=== PATIENT | female | born 1970 | race Caucasian/White ===

== ENCOUNTER 2016-11-13 10:39 | Inpatient (IN) | payer MEDICAID ==
[2016-11-13] MEDS ORDERED: Sodium Chloride 0.9% 1,000 ML IV ONE (11:12)
--- NOTE | 2016-11-13 11:20 | ED Physician Chart ---
Chief Complaint/HPI - Patient Information Date Seen:: 11/13/16 Time Seen:: 11:15 Chief Complaint:: dizzy History of Present Illness:: pt here for ARMENDARIZ and dizziness x week. was seen at clinic earlier and told her hgb is 8. she has had past blood transfusions due to her thalasemia. she also has a hx of brain ca x 3 yrs. pt is seen by neurologist q 6 mo and has been advised not to get brain sx as it would leave her bedridden for rest of life. pt cant give me details as to what type of brain ca it is or what is prognosis. she has had some decreased sensation to l side of body x months. pt speaks vietnamese and armenian. her armenian is relatively good but she has trouble w some words. Allergies:: Allergies Allergy/AdvReac Type Severity Reaction Status Date / Time No Known Allergies Allergy Verified 10/19/15 10:54 Vitals:: Vital Signs - 8 hr 11/13/16 10:50 Temp 96.8 F HR 91 RR 16 BP 154/86 O2 Sat % 97 Historian:: Patient Review of Systems - Review of Systems General/Constitutional: No fever, No chills, No weight loss, No weakness, No diaphoresis, No edema, No loss of appetite Skin: No skin lesions, No rash, No bruising Head: Headache, Light headed Eyes: No loss of vision, No pain, No diplopia ENT: No earache, No nasal drainage, No sore throat, No tinnitus Neck: No neck pain, No swelling, No thyromegaly, No stiffness, No mass noted Cardio Vascular: No chest pain, No palpitations, No PND, No orthopnea, No edema Pulmonary: No SOB, No cough, No sputum, No wheezing GI: No nausea, No vomiting, No diarrhea, No pain, No melena, No hematochezia, No constipation, No hematemesis G/U: No dysuria, No frequency, No hematuria Musculoskeletal: No bone or joint pain, No back pain, No muscle pain Endocrine: No polyuria, No polydipsia Psychiatric: No prior psych history, No depression, No anxiety, No suicidal ideation Hematopoietic: No bruising, No lymphadenopathy Allergic/Immuno: No urticaria, No angioedema Neurological: No syncope, No focal symptoms, No weakness, Paresthesia (numbness left side body x months), No paresthesia, No headache, No seizure, Dizziness, No confusion, No vertigo Past Medical History - Past Medical History Past Medical History: Other (anemia/thalasemia, brain ca x 3 yrs) Social History: Other (has family but they are at school/work//here alone) Medication: Reviewed Family Medical History - Family Member Mother History Unknown: Yes Physical Exam - Physical Examination General/Constitutional: Awake, Well-developed, well-nourished, Alert, No distress, GCS 15, Non-toxic appearing, Ambulatory Head: Atraumatic Eyes: Lids, conjuctiva normal, PERRL, EOMI Skin: Nl inspection, No rash, No skin lesions, No ecchymosis, Well hydrated, No lymphadenopathy ENMT: External ears, nose nl, Nasal exam nl, Lips, teeth, gums nl Neck: Nontender, Full ROM w/o pain, No JVD, No nuchal rigidity, No bruit, No mass, No stridor Respiratory: Nl effort/Exclusion, Clear to Auscultation, No Wheeze/Rhonchi/Rales Cardio Vascular: RRR, No murmur, gallop, rubs, NL S1 S2 GI: No tenderness/rebounding/guarding, No organomegaly, No hernia, Normal BS's, Nondistended, No mass/bruits, No McBurney tenderness : No CVA tenderness Extremities: No tenderness or effusion, Full ROM, normal strength in all extremities, No edema, Normal digits & nails Neuro/Psych: Alert/oriented, DTR's symmetric, Normal motor strength, Judgement/ insight normal, Mood normal, Normal gait, No focal deficits Other Neuro/Psych comments:: decreased sensation to l face/hand/arm/leg as compared to rt. no dec strength. Misc: normal gait, Normal back, No paraspinal tenderness Labs/Radiology/EKG Results - Lab Results Results: Laboratory Tests 11/13/16 11/13/16 11/13/16 11:08 11:08 11:22 WBC 7.8 RBC 3.41 L Hgb 8.3 L Hct 25.4 L D MCV 74.4 L MCH 24.3 L MCHC Differential 32.6 RDW 14.9 Plt Count 430 H MPV 8.3 Neutrophils % 58.6 Lymphocytes % 32.7 Monocytes % 6.5 Eosinophils % 1.5 Basophils % 0.7 PT INR PTT (Actin FS) Urine Source CLEAN C Urine Color RED Urine Clarity CLOUDY H Urine pH 7.0 Ur Specific [place] 1.025 Urine Protein >300 H Urine Glucose (UA) NEGATIVE Urine Ketones NEGATIVE Urine Blood LARGE H Urine Nitrate NEGATIVE Urine Bilirubin NEGATIVE Urine Ictotest NEGATIVE Urine Urobilinogen 1.0 Ur Leukocyte Esterase NEGATIVE Urine RBC >100 H Urine WBC 0-2 Ur Epithelial Cells RARE Urine Bacteria 2+ H Urine Test NEGATIVE 11/13/16 11:22 WBC RBC Hgb Hct MCV MCH MCHC Differential RDW Plt Count MPV Neutrophils % Lymphocytes % Monocytes % Eosinophils % Basophils % PT 9.5 INR 0.91 PTT (Actin FS) 22.5 L Urine Source Urine Color Urine Clarity Urine pH Ur Specific Ernest Urine Protein Urine Glucose (UA) Urine Ketones Urine Blood Urine Nitrate Urine Bilirubin Urine Ictotest Urine Urobilinogen Ur Leukocyte Esterase Urine RBC Urine WBC Ur Epithelial Cells Urine Bacteria Urine Test - Radiology Results Results: ct head - ill defined heterogenous density //mass lesion along left BG and l frontal lobe measures 2.5x2cm (known brain ca hx) no mass effect, no bleed. no midline shift. - EKG Interpretations EKG Time:: 11:25 Rate & Rhythm: nsr 75 Jacob: 29 Intervals: mild st elev w upscooping ..likely benign repol ED Septic Shock - . Is Septic Shock (SBP<90, OR Lactate>4 mmol\L) present?: No - <6hrs of presentation: Vital Signs: Vital Signs - 8 hr 11/13/16 10:50 Temp 96.8 F HR 91 RR 16 BP 154/86 O2 Sat % 97 Reassessment (Disposition) - Reassessment Reassessment:: case dw dr reynolds at 2;30pm...is giving admit order and consult to neurology + hematology. Reassessment Condition:: Unchanged - Diagnosis Diagnosis:: 1 anemia (known thalasemia hx) 2 brain mass 3 headache - Patient Disposition Admitted to:: Med/Surg Condition at Disposition:: Unchanged
[2016-11-13 11:48] LABS: HEMOGLOBIN 8.3 gm/dL (11.7-15.5); RED BLOOD COUNT 3.41 Mil/cmm (3.80-5.10); WHITE BLOOD COUNT 7.8 Th/cmm (4.8-10.8)
[2016-11-13 11:49] LABS: % BASOPHILS 0.7 % (0.0-2.0); % EOSINOPHILS 1.5 % (0.0-5.0); % LYMPHOCYTES 32.7 % (20.0-50.0); % MONOCYTES 6.5 % (2.0-10.0); % NEUTROPHILS 58.6 % (40.0-80.0); HEMATOCRIT 25.4 % (35.0-45.0); MEAN CELL VOLUME 74.4 fl (81-100); MEAN CORPUSCULAR HEMOGLOBIN 24.3 pg (27.0-31.0); MEAN CORPUSCULAR HGB CONC 32.6 pg (28.0-36.0); MEAN PLATELET VOLUME 8.3 fl; PLATELET COUNT 430 Th/cmm (150-400); RED CELL DISTRIBUTION WIDTH 14.9 % (11.5-20.0)
[2016-11-13 11:50] LABS: NEUTROPHILE ABSOLUTE 4.5 Th/cmm (1.8-8.0)
[2016-11-13 12:06] LABS: URINE COLOR RED
[2016-11-13 12:07] LABS: URINE BILIRUBIN NEGATIVE (NEGATIVE); URINE BLOOD LARGE (NEGATIVE); URINE GLUCOSE (UA) NEGATIVE (NEGATIVE); URINE KETONE NEGATIVE (NEGATIVE); URINE PROTEIN >300 mg/dL (NEGATIVE)
[2016-11-13 12:09] LABS: URINE BACTERIA 2+ /hpf (NONE SEEN); URINE EPITHELIAL CELLS RARE /lpf (FEW); URINE RBC >100 /hpf (0-5); URINE WBC 0-2 /hpf (0-5)
[2016-11-13 12:21] LABS: INR 0.91 (0.5-1.4); PROTHROMBIN TIME (TEST) 9.5 SECONDS (9.5-11.5)
--- NOTE | 2016-11-13 12:37 | Diagnostic Imaging Report ---
Head CT without intravenous contrast Indication: Headache, provided history of brain cancer Comparison: None Technique: Axial images were obtained from the vertex to the skull base without IV contrast. Coronal reconstructions were made. Total DLP: 601, CTDI31 FINDINGS: Images of the brain obtained without contrast demonstrate ill defined heterogeneous density and probable mass lesion along the left basal ganglia extending to left frontal lobe and left insular region measuring 2.5 x 2 cm. No significant mass effect. No midline shift. No evidence of an acute hemorrhage. The ventricles and basal cisterns are patent. No evidence of a skull fracture or focal soft tissue swelling. The visualized paranasal sinuses demonstrate mild mucosal thickening. IMPRESSION: Ill defined heterogeneous area/likely mass lesion along the left basal ganglia extending to the left insular region and left frontal lobe. Please correlate patient's clinical history and history of brain cancer. Recommend short-term follow-up with MRI brain without IV contrast No significant mass effect or midline shift No evidence of an acute intracranial hemorrhage.
[2016-11-13 12:46] LABS: ALB/GLOB RATIO 1.2 (1.0-1.8); ALKALINE PHOSPHATASE 87 U/L (34-104); ANION GAP 10.9 (7.0-16.0); BILIRUBIN,TOTAL 0.2 mg/dL (0.3-1.0); BUN - UREA NITROGEN 12 mg/dL (7-25); CALCIUM SERUM 8.8 mg/dL (8.6-10.3); CARBON DIOXIDE 23.4 mEq/L (21.0-31.0); CHLORIDE 106 mEq/L (98-107); CREATININE - SERUM 0.5 mg/dL (0.6-1.2); GLUCOSE 136 mg/dL (70-105); POTASSIUM SERUM 3.3 mEq/L (3.5-5.1); SGOT 15 U/L (13-39); SGPT/ALT 12 U/L (7-52); SODIUM SERUM 137 mEq/L (136-145)
[2016-11-13] MEDS ORDERED: Potassium Chloride 20 mEq ER Tab PO ONE (15:54)
[2016-11-13] MEDS ORDERED: Hydrocodone/APAP 5mg/325mg Tab PO SCH (17:45)
[2016-11-13 18:29] VITALS: BP 157/80
[2016-11-13] MEDS: Hydrocodone/APAP 5mg/325mg Tab PO PRN (18:40)
[2016-11-13] MEDS: cefTRIAXone 1 GM in Sodium Chloride 0.9% 50 ML IV SCH (18:51)
--- NOTE | 2016-11-13 20:39 | Consultation ---
DATE OF CONSULTATION: 11/13/2016 HISTORY OF PRESENT ILLNESS: This is a 46-year-old. The patient came in because of headache and dizziness. She gives a history of brain tumor. PAST MEDICAL HISTORY: Otherwise has history of possible anemia. The patient has thalassemia. Seen by Hematology. SOCIAL HISTORY: Does not smoke or drink. REVIEW OF SYSTEMS: The patient on direct questioning had headache pressure like, throbbing. No visual loss. Some nausea. No vomiting. The patient has no chest pain and no shortness of breath. No cough, sputum, or hemoptysis. No abdominal pain. No constipation or diarrhea. MEDICATIONS: [place]. PHYSICAL EXAMINATION: VITAL SIGNS: Temperature 97.8, blood pressure 160/80, and pulse is around about 76. NECK: Supple. No bruits. HEART: S1, S2. LUNGS: Clear. NEUROLOGIC: The patient is awake. She answers questions. The patient's family is by the bedside. She speaks mainly [place]. Pupils react to light. No facial weakness. MOTOR: She will lift both arms up. INVESTIGATIONS: CT scan shows a mass left basal ganglia, left frontal. IMPRESSION: 1. Brain tumor. 2. Headache. 3. Anemia. PLAN: MRI of brain without and with contrast. Further workup depending on that. I will recommend transfer of the patient to a Neurosurgical Facility. JOB# [id number]
[2016-11-14 07:05] LABS: RED CELL DISTRIBUTION WIDTH 14.9 % (11.5-20.0)
[2016-11-14 07:21] LABS: ANION GAP 8.9 (7.0-16.0); BUN - UREA NITROGEN 6 mg/dL (7-25); CALCIUM SERUM 8.1 mg/dL (8.6-10.3); CARBON DIOXIDE 22.6 mEq/L (21.0-31.0); CHLORIDE 108 mEq/L (98-107); CREATININE - SERUM 0.4 mg/dL (0.6-1.2); GLUCOSE 127 mg/dL (70-105); POTASSIUM SERUM 3.5 mEq/L (3.5-5.1); SODIUM SERUM 136 mEq/L (136-145)
[2016-11-14 07:32] LABS: HEMATOCRIT 24.4 % (35.0-45.0); MEAN CELL VOLUME 74.4 fl (81-100); MEAN CORPUSCULAR HEMOGLOBIN 24.1 pg (27.0-31.0); MEAN CORPUSCULAR HGB CONC 32.4 pg (28.0-36.0); MEAN PLATELET VOLUME 8.4 fl; PLATELET COUNT 399 Th/cmm (150-400); RED BLOOD COUNT 3.27 Mil/cmm (3.80-5.10); WHITE BLOOD COUNT 7.2 Th/cmm (4.8-10.8)
[2016-11-14 08:25] LABS: HEMOGLOBIN 7.9 gm/dL (11.7-15.5)
[2016-11-14 08:30] LABS: EOSINOPHIL 2 % (0-5); MICROCYTOSIS 1+; NEUTROPHILS 58 % (40-80); TOTAL CELLS COUNTED 100
--- NOTE | 2016-11-14 08:34 | History and Physical ---
History of Present Illness - HPI Chief Complaint: dizziness HPI: 46 year old female who presents to [facility] for ARMENDARIZ and dizziness x 1 week. Was informed that her hgb is 8. She has had a previous blood transfusion d/t thalassemia. She also has a history of bran CA x 3 years. Patient has a neurologist q6 months and was advised not to get brain sugery as it would leave her bedridden. patient has decreased sensation to left side of the body. Vital Signs: Last Vital Signs Temp 97.8 F 11/14/16 04:00 Pulse 79 11/14/16 04:00 Resp 18 11/14/16 08:00 BP 132/86 11/14/16 04:00 Pulse Ox 98 11/14/16 04:00 Past Medical History Cardiovascular: Report: No Pertinent Hx Pulmonary: Report: No Pertinent Hx EDUCATIONAL TECHNOLOGY SPECIALIST: Report: Other (brain CA x 3 years) GI: Report: No Pertinent Hx Psych: Report: No Pertinent Hx Musculoskeletal: Report: No Pertinent Hx Rheumatologic: Report: No pertinent Hx Infectious Disease: Report: No Pertinent Hx Renal/: Report: No Pertinent Hx Endocrine: Report: No Pertinent Hx Dermatology: Report: No Pertinent Hx Family Medical History - Family Member Mother History Unknown: Yes Social History Smoke: No Alcohol: None Drugs: None Lives: Alone - Medications Home Medications: Home Medication Medication Instructions Recorded Type Hydrocodone/Acetaminophen [[place] 1 tab PO BID 11/13/16 History 325 mg-5 mg*] - Allergies Allergies/Adverse Reactions: Allergies Allergy/AdvReac Type Severity Reaction Status Date / Time No Known Allergies Allergy Verified 10/19/15 10:54 Review of Systems - Review of Systems Constitutional: Report: No Significant Eyes: Report: No Significant ENT: Report: No Significant Respiratory: Report: No Significant Cardiovascular: Report: No Significant Gastrointestinal: Report: No Significant Genitourinary: Report: No Significant Musculoskeletal: Report: No Significant Skin: Report: No Significant Neurological: Report: No Significant Physical Exam - Physical Exam HEENT: Report: Ears Nose Throat within normal limits, Pharnyx within normal limits Neck: Report: Within normal limits, Thyromegaly Cardiovascular Systems: Report: +s1/s2 noted, Regular, Rate and Rhythm Respiratory: Report: Breath Sounds are within normal limits, Clear to Auscultation of lung rivera Abdomen: Report: Non-tender to palpation - Lab Results All Lab Results last 24 hours: Laboratory Last Values WBC 7.2 Th/cmm (4.8-10.8) 11/14/16 06:20 RBC 3.27 Mil/cmm (3.80-5.10) L 11/14/16 06:20 Hgb 7.9 gm/dL (11.7-15.5) L* 11/14/16 06:20 Hct 24.4 % (35.0-45.0) L 11/14/16 06:20 MCV 74.4 fl (81-100) L 11/14/16 06:20 MCH 24.1 pg (27.0-31.0) L 11/14/16 06:20 MCHC Differential 32.4 pg (28.0-36.0) 11/14/16 06:20 RDW 14.9 % (11.5-20.0) 11/14/16 06:20 Plt Count 399 Th/cmm (150-400) 11/14/16 06:20 MPV 8.4 fl 11/14/16 06:20 Neutrophils % 47.9 % (40.0-80.0) 11/14/16 06:20 Lymphocytes % 40.3 % (20.0-50.0) 11/14/16 06:20 Monocytes % 9.8 % (2.0-10.0) 11/14/16 06:20 Eosinophils % 1.7 % (0.0-5.0) 11/14/16 06:20 Basophils % 0.3 % (0.0-2.0) 11/14/16 06:20 PT 9.5 SECONDS (9.5-11.5) 11/13/16 11:22 INR 0.91 (0.5-1.4) 11/13/16 11:22 PTT (Actin FS) 22.5 SECONDS (26.0-38.0) L 11/13/16 11:22 Sodium 136 mEq/L (136-145) 11/14/16 06:20 Potassium 3.5 mEq/L (3.5-5.1) 11/14/16 06:20 Chloride 108 mEq/L (98-107) H 11/14/16 06:20 Carbon Dioxide 22.6 mEq/L (21.0-31.0) 11/14/16 06:20 Anion Gap 8.9 (7.0-16.0) 11/14/16 06:20 BUN 6 mg/dL (7-25) L 11/14/16 06:20 Creatinine 0.4 mg/dL (0.6-1.2) L 11/14/16 06:20 Est GFR ( Amer) > 60.0 ml/min (>90) 11/14/16 06:20 Est GFR (Non-Af Amer) > 60.0 ml/min 11/14/16 06:20 BUN/Creatinine Ratio 15.0 11/14/16 06:20 Glucose 127 mg/dL (70-105) H 11/14/16 06:20 Calcium 8.1 mg/dL (8.6-10.3) L 11/14/16 06:20 Total Bilirubin 0.2 mg/dL (0.3-1.0) L 11/13/16 11:22 AST 15 U/L (13-39) 11/13/16 11:22 ALT 12 U/L (7-52) 11/13/16 11:22 Alkaline Phosphatase 87 U/L (34-104) 11/13/16 11:22 Troponin I 0.02 ng/mL (0.01-0.05) 11/13/16 11:22 Total Protein 6.9 gm/dL (6.0-8.3) 11/13/16 11:22 Albumin 3.8 gm/dL (3.7-5.3) 11/13/16 11:22 Globulin 3.1 gm/dL 11/13/16 11:22 Albumin/Globulin Ratio 1.2 (1.0-1.8) 11/13/16 11:22 Urine Source CLEAN C 11/13/16 11:08 Urine Color RED 11/13/16 11:08 Urine Clarity CLOUDY (CLEAR) H 11/13/16 11:08 Urine pH 7.0 (4.6 - 8.0) 11/13/16 11:08 Ur Specific [place] 1.025 (1.005-1.030) 11/13/16 11:08 Urine Protein >300 mg/dL (NEGATIVE) H 11/13/16 11:08 Urine Glucose (UA) NEGATIVE mg/dL (NEGATIVE) 11/13/16 11:08 Urine Ketones NEGATIVE mg/dL (NEGATIVE) 11/13/16 11:08 Urine Blood LARGE (NEGATIVE) H 11/13/16 11:08 Urine Nitrate NEGATIVE (NEGATIVE) 11/13/16 11:08 Urine Bilirubin NEGATIVE (NEGATIVE) 11/13/16 11:08 Urine Ictotest NEGATIVE (NEGATIVE) 11/13/16 11:08 Urine Urobilinogen 1.0 E.U./dL (0.2 - 1.0) 11/13/16 11:08 Ur Leukocyte Esterase NEGATIVE (NEGATIVE) 11/13/16 11:08 Urine RBC >100 /hpf (0-5) H 11/13/16 11:08 Urine WBC 0-2 /hpf (0-5) 11/13/16 11:08 Ur Epithelial Cells RARE /lpf (FEW) 11/13/16 11:08 Urine Bacteria 2+ /hpf (NONE SEEN) H 11/13/16 11:08 Urine Test NEGATIVE 11/13/16 11:08 Blood Type O POSITIVE 11/13/16 11:22 Antibody Screen NEGATIVE 11/13/16 11:22 Laboratory Results - last 24 hr 11/14/16 11/14/16 06:20 06:20 WBC 7.2 RBC 3.27 L Hgb 7.9 L* Hct 24.4 L MCV 74.4 L MCH 24.1 L MCHC Differential 32.4 RDW 14.9 Plt Count 399 MPV 8.4 Neutrophils % 47.9 Lymphocytes % 40.3 Monocytes % 9.8 Eosinophils % 1.7 Basophils % 0.3 Sodium 136 Potassium 3.5 Chloride 108 H Carbon Dioxide 22.6 Anion Gap 8.9 BUN 6 L Creatinine 0.4 L Est GFR ( Amer) > 60.0 Est GFR (Non-Af Amer) > 60.0 BUN/Creatinine Ratio 15.0 Glucose 127 H Calcium 8.1 L - Assessment Assessment: dizziness h/o thalessemia anemia Hg 8-7.9 ... repeat CBC. Hematology consult brain CA noted on CT head ... for MRI head today. Neuro consult UTI ... will order Rocephin 1gm IV hypokalemia ... improved. - Plan Plan: dizziness h/o thalessemia anemia Hg 8-7.9 ... repeat CBC. Hematology consult brain CA noted on CT head ... for MRI head today. Neuro consult UTI ... will order Rocephin 1gm IV hypokalemia ... improved.
--- NOTE | 2016-11-14 12:20 | Diagnostic Imaging Report ---
MRI Brain without and with intravenous Contrast Indication: Mass Comparison: Head CT on 11/13/2016 Technique: Multiplanar T1, T2, FLAIR, GRE and diffusion weighted images of the brain were obtained without intravenous contrast.. IV contrast was administered and multiplanar T1-weighted images were obtained. Findings: There is no evidence of an acute infarction. There is diffuse hemosiderin deposition seen along the left basal ganglia region extending the left frontal lobe. There is heterogeneous lobulated mass with cystic components seen in this region measuring 2.0 x 1.9 cm. Following contrast administration minimal enhancement is seen in this region. There is probable development of the abnormality of the left frontal lobe. No other mass lesions identified. The vascular flow was are preserved. The bilateral cerebellopontine angles are patent. IMPRESSION: 2.0 x 1.9 cm heterogeneous lesion with cystic components and areas of mild enhancement seen along the left basal ganglia region extending left frontal lobe. Surrounding hemosiderin deposition is seen likely due to old hemorrhage. Differential diagnosis includes a primary brain tumor such as a gangliocytoma, ganglioglioma. Other less likely differentials include metastatic disease. Clinical correlation and correlation with old exams is recommended. Follow-up is also recommended. No evidence of significant mass effect. No midline shift. Possible very small developmental venous abnormality of the left frontal lobe.
--- NOTE | 2016-11-14 12:33 | Consultation ---
DATE OF CONSULTATION: 11/14/2016 REFERRING PHYSICIAN: Dr. Brizuela. REASON FOR CONSULTATION: Brain tumor. HISTORY OF PRESENT ILLNESS: The patient is a 46-year-old female who presented to the hospital with headache. She had CT scan of the abdomen, which showed tumor. She was evaluated by the neurologist and MRI of the brain was ordered and the patient is getting MRI at [facility]. PAST MEDICAL HISTORY: History of brain tumor 3 years ago, the details of treatment are not clear. SOCIAL HISTORY: No smoking or drinking. PHYSICAL EXAMINATION: Not done since the patient is not in the hospital this time and from the records, the patient does not have neuro deficits. CT scan of the head report was seen. It reported ill-defined heterogenous mass in the left basal ganglia area extending to the left insular region and left frontal lobe. LABORATORY DATA: White count 7.2, hemoglobin 7.9, platelets 399, creatinine 0.4. Liver functions normal. ASSESSMENT AND PLAN: History of brain tumor 3 years ago. The pathology is not available. The patient is undergoing MRI to better delineate the pathology in the brain. The patient will be better served by referring her to the primary facility where she did her previous workup, pathology and interventions to continue management in the presence of a neurosurgeon. Thank you Dr. Brizuela, for the opportunity to participate in the care of this interesting case with you. JOB# [id number]
--- NOTE | 2016-11-14 13:34 | Diagnostic Imaging Report ---
Ultrasound abdomen HISTORY: Abdominal pain COMPARISON: CT abdomen and pelvis on 09/11/2015 Technique: Sonography of the abdomen was performed in multiple planes. FINDINGS: The liver demonstrates normal echogenicity with no evidence of focal lesions. The liver measures 17.4 cm. No evidence of gallstones or gallbladder wall thickening. The common bile duct measures 2 mm. Evaluation of the pancreas is limited due to bowel gas. The right kidney measures 11.1 x 5.2 cm. No evidence of focal lesions or hydronephrosis. The left kidney measures 11.7 x 6.1 cm. No evidence of focal lesions or hydronephrosis. The spleen measures 9.4 cm. IMPRESSION: Borderline prominent liver No evidence of gallstones No evidence of hydronephrosis.
[2016-11-14] MEDS: Hydrocodone/APAP 5mg/325mg Tab PO PRN (16:56)
[2016-11-14] MEDS: cefTRIAXone 1 GM in Sodium Chloride 0.9% 50 ML IV SCH (17:34)
[2016-11-15] MEDS: Hydrocodone/APAP 5mg/325mg Tab PO PRN (04:32)
[2016-11-15 07:21] LABS: HEMATOCRIT 24.8 % (35.0-45.0); MEAN CELL VOLUME 74.4 fl (81-100); MEAN CORPUSCULAR HGB CONC 32.2 pg (28.0-36.0); MEAN PLATELET VOLUME 8.3 fl; PLATELET COUNT 444 Th/cmm (150-400); RED BLOOD COUNT 3.34 Mil/cmm (3.80-5.10); RED CELL DISTRIBUTION WIDTH 14.7 % (11.5-20.0); WHITE BLOOD COUNT 7.4 Th/cmm (4.8-10.8)
[2016-11-15 07:41] LABS: ALB/GLOB RATIO 1.3 (1.0-1.8); ALKALINE PHOSPHATASE 80 U/L (34-104); ANION GAP 8.5 (7.0-16.0); BILIRUBIN,TOTAL 0.2 mg/dL (0.3-1.0); BUN - UREA NITROGEN 11 mg/dL (7-25); CALCIUM SERUM 8.6 mg/dL (8.6-10.3); CARBON DIOXIDE 26.1 mEq/L (21.0-31.0); CHLORIDE 103 mEq/L (98-107); CREATININE - SERUM 0.5 mg/dL (0.6-1.2); GLUCOSE 98 mg/dL (70-105); POTASSIUM SERUM 3.6 mEq/L (3.5-5.1); SGOT 14 U/L (13-39); SGPT/ALT 13 U/L (7-52); SODIUM SERUM 134 mEq/L (136-145)
--- NOTE | 2016-11-15 08:04 | General Progress Note ---
Subjective - Review of Systems Service Date: 11/15/16 Subjective: Awake,alert,no acute distress. Complains of headaches. Had MRI head yesterday. Please see dictated report. Patient to see [facility] Neurologist on Nov 19. MRI does not show midline shift. Objective - Results Result Diagrams: 11/15/16 06:05 11/15/16 06:05 Recent Labs: Laboratory Last Values WBC 7.2 Th/cmm (4.8-10.8) 11/14/16 06:20 RBC 3.27 Mil/cmm (3.80-5.10) L 11/14/16 06:20 Hgb 7.9 gm/dL (11.7-15.5) L* 11/14/16 06:20 Hct 24.4 % (35.0-45.0) L 11/14/16 06:20 MCV 74.4 fl (81-100) L 11/14/16 06:20 MCH 24.1 pg (27.0-31.0) L 11/14/16 06:20 MCHC Differential 32.4 pg (28.0-36.0) 11/14/16 06:20 RDW 14.9 % (11.5-20.0) 11/14/16 06:20 Plt Count 399 Th/cmm (150-400) 11/14/16 06:20 MPV 8.4 fl 11/14/16 06:20 Neutrophils % CAPTAIN FISHING VESSEL 11/14/16 06:20 Lymphocytes % CAPTAIN FISHING VESSEL 11/14/16 06:20 Monocytes % CAPTAIN FISHING VESSEL 11/14/16 06:20 Eosinophils % CAPTAIN FISHING VESSEL 11/14/16 06:20 Basophils % CAPTAIN FISHING VESSEL 11/14/16 06:20 Neutrophils (Manual) 58 % (40-80) 11/14/16 06:20 Lymphocytes 33 % (20-50) 11/14/16 06:20 Monocytes 7 % (2-10) 11/14/16 06:20 Eosinophils 2 % (0-5) 11/14/16 06:20 Microcytosis 1+ 11/14/16 06:20 PT 9.5 SECONDS (9.5-11.5) 11/13/16 11:22 INR 0.91 (0.5-1.4) 11/13/16 11:22 PTT (Actin FS) 22.5 SECONDS (26.0-38.0) L 11/13/16 11:22 Sodium 134 mEq/L (136-145) L 11/15/16 06:05 Potassium 3.6 mEq/L (3.5-5.1) 11/15/16 06:05 Chloride 103 mEq/L (98-107) 11/15/16 06:05 Carbon Dioxide 26.1 mEq/L (21.0-31.0) 11/15/16 06:05 Anion Gap 8.5 (7.0-16.0) 11/15/16 06:05 BUN 11 mg/dL (7-25) 11/15/16 06:05 Creatinine 0.5 mg/dL (0.6-1.2) L 11/15/16 06:05 Est GFR ( Amer) > 60.0 ml/min (>90) 11/15/16 06:05 Est GFR (Non-Af Amer) > 60.0 ml/min 11/15/16 06:05 BUN/Creatinine Ratio 22.0 11/15/16 06:05 Glucose 98 mg/dL (70-105) 11/15/16 06:05 Calcium 8.6 mg/dL (8.6-10.3) 11/15/16 06:05 Total Bilirubin 0.2 mg/dL (0.3-1.0) L 11/15/16 06:05 AST 14 U/L (13-39) 11/15/16 06:05 ALT 13 U/L (7-52) 11/15/16 06:05 Alkaline Phosphatase 80 U/L (34-104) 11/15/16 06:05 Troponin I 0.02 ng/mL (0.01-0.05) 11/13/16 11:22 Total Protein 6.6 gm/dL (6.0-8.3) 11/15/16 06:05 Albumin 3.7 gm/dL (3.7-5.3) 11/15/16 06:05 Globulin 2.9 gm/dL 11/15/16 06:05 Albumin/Globulin Ratio 1.3 (1.0-1.8) 11/15/16 06:05 Urine Source CLEAN C 11/13/16 11:08 Urine Color RED 11/13/16 11:08 Urine Clarity CLOUDY (CLEAR) H 11/13/16 11:08 Urine pH 7.0 (4.6 - 8.0) 11/13/16 11:08 Ur Specific [place] 1.025 (1.005-1.030) 11/13/16 11:08 Urine Protein >300 mg/dL (NEGATIVE) H 11/13/16 11:08 Urine Glucose (UA) NEGATIVE mg/dL (NEGATIVE) 11/13/16 11:08 Urine Ketones NEGATIVE mg/dL (NEGATIVE) 11/13/16 11:08 Urine Blood LARGE (NEGATIVE) H 11/13/16 11:08 Urine Nitrate NEGATIVE (NEGATIVE) 11/13/16 11:08 Urine Bilirubin NEGATIVE (NEGATIVE) 11/13/16 11:08 Urine Ictotest NEGATIVE (NEGATIVE) 11/13/16 11:08 Urine Urobilinogen 1.0 E.U./dL (0.2 - 1.0) 11/13/16 11:08 Ur Leukocyte Esterase NEGATIVE (NEGATIVE) 11/13/16 11:08 Urine RBC >100 /hpf (0-5) H 11/13/16 11:08 Urine WBC 0-2 /hpf (0-5) 11/13/16 11:08 Ur Epithelial Cells RARE /lpf (FEW) 11/13/16 11:08 Urine Bacteria 2+ /hpf (NONE SEEN) H 11/13/16 11:08 Urine Test NEGATIVE 11/13/16 11:08 Blood Type O POSITIVE 11/13/16 11:22 Antibody Screen NEGATIVE 11/13/16 11:22 - Physical Exam Vitals and I&O: Vital Signs Temp 97.2 F 11/15/16 04:00 Pulse 68 11/15/16 04:00 Resp 18 11/15/16 04:00 BP 142/84 11/15/16 04:00 Pulse Ox 98 11/15/16 04:00 Intake & Output 11/14/16 11/15/16 11/15/16 18:59 06:59 18:59 Intake Total 700 500 Balance 700 500 Weight (lbs) 71.668 kg 71.668 kg Intake: Intake, IV Amount 50 cefTRIAXone 1 gm In 50 Sodium Chloride 0.9% 50 ml @ 100 mls/hr IV Q24HR [facility] Rx#:[id number] Oral 650 500 Other: # Voids 3 3 # Bowel Movements 0 Active Medications: Current Medications Acetaminophen/Hydrocodone Bitart ([place] 5mg/325mg) 1 tab PO BID PRN PRN Reason: Headache Stop: 01/12/17 14:42 Last Admin: 11/15/16 04:32 Dose: 1 tab Ceftriaxone Sodium 1 gm/ (Sodium Chloride) 50 mls @ 100 mls/hr IV Q24HR TELLO Stop: 01/12/17 17:59 Last Infusion: 11/14/16 18:04 Dose: Infused Pantoprazole Sodium (Protonix) 40 mg IVP DAILY TELLO Stop: 01/13/17 08:59 Last Admin: 11/14/16 09:14 Dose: 40 mg General: Alert, Oriented x3 HEENT: Atraumatic, PERRLA, EOMI Neck: Supple Cardiovascular: Regular rate, Normal S1, Normal S2 Lungs: Clear to auscultation Abdomen: Bowel sounds Extremities: no Clubbing, no Cyanosis, no Edema - Procedures Procedures: Procedures Procedure Code Date BILAT TUBAL DESTRUCT NEC 66.39 10/18/08 DELIVERY ONLY 39029 10/18/08 DX PROC FETUS/AMNION NEC 75.35 10/11/03 DX ULTRASOUND-GRAV UTER 88.78 10/11/03 MONITORING NOS 75.34 10/09/03 NON-STRESS TEST 83327 10/11/03 INJECT/INFUSE NEC 99.29 06/02/13 LIGATE OVIDUCT(S) ADD-ON 00341 10/18/08 LOW CERVICAL 74.1 10/18/08 MATERNITY CARE PROCEDURE 85519 10/09/03 OB US LIMITED FETUS(S) 09033 10/11/03 Assessment/Plan - Problem List Patient Problems: All Active Problems Anemia (Acute) D64.9 Brain tumor (Acute) D49.6 Dizziness (Acute) R42 Hypokalemia (Acute) E87.6 Thalassemia (Acute) D56.9 UTI (urinary tract infection) (Acute) Epigastric abdominal pain (Acute) R10.13 Thalassemia (Acute) D56.9 - Assessment Assessment: dizziness h/o thalessemia anemia Hg 8-7.9 ... repeat CBC. Hematology consult brain CA noted on CT head ... for MRI head today. Neuro consult UTI ... will order Rocephin 1gm IV hypokalemia ... improved. - Plan Plan: dizziness h/o thalessemia anemia Hg 8-7.9 ... repeat CBC. Hematology consult brain CA noted on CT head ... for MRI head today. Neuro consult UTI ... will order Rocephin 1gm IV hypokalemia ... improved.
[2016-11-15] MEDS: Hydrocodone/APAP 10 mg/325 mg Tab PO PRN ×3 (09:51→21:47)
--- NOTE | 2016-11-15 09:52 | General Progress Note ---
Subjective - Review of Systems Service Date: 11/15/16 Events since last encounter: no sz, or falls Objective - Results Result Diagrams: 11/15/16 06:05 11/15/16 06:05 Recent Labs: Laboratory Last Values WBC 7.4 Th/cmm (4.8-10.8) 11/15/16 06:05 RBC 3.34 Mil/cmm (3.80-5.10) L 11/15/16 06:05 Hgb 8.0 gm/dL (11.7-15.5) L 11/15/16 06:05 Hct 24.8 % (35.0-45.0) L 11/15/16 06:05 MCV 74.4 fl (81-100) L 11/15/16 06:05 MCH 24.0 pg (27.0-31.0) L 11/15/16 06:05 MCHC Differential 32.2 pg (28.0-36.0) 11/15/16 06:05 RDW 14.7 % (11.5-20.0) 11/15/16 06:05 Plt Count 444 Th/cmm (150-400) H 11/15/16 06:05 MPV 8.3 fl 11/15/16 06:05 Neutrophils % AGRICULTURE EXTENSION SPECIALIST 11/15/16 06:05 Lymphocytes % AGRICULTURE EXTENSION SPECIALIST 11/15/16 06:05 Monocytes % AGRICULTURE EXTENSION SPECIALIST 11/15/16 06:05 Eosinophils % AGRICULTURE EXTENSION SPECIALIST 11/15/16 06:05 Basophils % AGRICULTURE EXTENSION SPECIALIST 11/15/16 06:05 Neutrophils (Manual) 58 % (40-80) 11/14/16 06:20 Lymphocytes 33 % (20-50) 11/14/16 06:20 Monocytes 7 % (2-10) 11/14/16 06:20 Eosinophils 2 % (0-5) 11/14/16 06:20 Microcytosis 1+ 11/14/16 06:20 PT 9.5 SECONDS (9.5-11.5) 11/13/16 11:22 INR 0.91 (0.5-1.4) 11/13/16 11:22 PTT (Actin FS) 22.5 SECONDS (26.0-38.0) L 11/13/16 11:22 Sodium 134 mEq/L (136-145) L 11/15/16 06:05 Potassium 3.6 mEq/L (3.5-5.1) 11/15/16 06:05 Chloride 103 mEq/L (98-107) 11/15/16 06:05 Carbon Dioxide 26.1 mEq/L (21.0-31.0) 11/15/16 06:05 Anion Gap 8.5 (7.0-16.0) 11/15/16 06:05 BUN 11 mg/dL (7-25) 11/15/16 06:05 Creatinine 0.5 mg/dL (0.6-1.2) L 11/15/16 06:05 Est GFR ( Amer) > 60.0 ml/min (>90) 11/15/16 06:05 Est GFR (Non-Af Amer) > 60.0 ml/min 11/15/16 06:05 BUN/Creatinine Ratio 22.0 11/15/16 06:05 Glucose 98 mg/dL (70-105) 11/15/16 06:05 Calcium 8.6 mg/dL (8.6-10.3) 11/15/16 06:05 Total Bilirubin 0.2 mg/dL (0.3-1.0) L 11/15/16 06:05 AST 14 U/L (13-39) 11/15/16 06:05 ALT 13 U/L (7-52) 11/15/16 06:05 Alkaline Phosphatase 80 U/L (34-104) 11/15/16 06:05 Troponin I 0.02 ng/mL (0.01-0.05) 11/13/16 11:22 Total Protein 6.6 gm/dL (6.0-8.3) 11/15/16 06:05 Albumin 3.7 gm/dL (3.7-5.3) 11/15/16 06:05 Globulin 2.9 gm/dL 11/15/16 06:05 Albumin/Globulin Ratio 1.3 (1.0-1.8) 11/15/16 06:05 Urine Source CLEAN C 11/13/16 11:08 Urine Color RED 11/13/16 11:08 Urine Clarity CLOUDY (CLEAR) H 11/13/16 11:08 Urine pH 7.0 (4.6 - 8.0) 11/13/16 11:08 Ur Specific [place] 1.025 (1.005-1.030) 11/13/16 11:08 Urine Protein >300 mg/dL (NEGATIVE) H 11/13/16 11:08 Urine Glucose (UA) NEGATIVE mg/dL (NEGATIVE) 11/13/16 11:08 Urine Ketones NEGATIVE mg/dL (NEGATIVE) 11/13/16 11:08 Urine Blood LARGE (NEGATIVE) H 11/13/16 11:08 Urine Nitrate NEGATIVE (NEGATIVE) 11/13/16 11:08 Urine Bilirubin NEGATIVE (NEGATIVE) 11/13/16 11:08 Urine Ictotest NEGATIVE (NEGATIVE) 11/13/16 11:08 Urine Urobilinogen 1.0 E.U./dL (0.2 - 1.0) 11/13/16 11:08 Ur Leukocyte Esterase NEGATIVE (NEGATIVE) 11/13/16 11:08 Urine RBC >100 /hpf (0-5) H 11/13/16 11:08 Urine WBC 0-2 /hpf (0-5) 11/13/16 11:08 Ur Epithelial Cells RARE /lpf (FEW) 11/13/16 11:08 Urine Bacteria 2+ /hpf (NONE SEEN) H 11/13/16 11:08 Urine Test NEGATIVE 11/13/16 11:08 Blood Type O POSITIVE 11/13/16 11:22 Antibody Screen NEGATIVE 11/13/16 11:22 - Physical Exam Vitals and I&O: Vital Signs Temp 97.2 F 11/15/16 04:00 Pulse 68 11/15/16 04:00 Resp 18 11/15/16 04:00 BP 142/84 11/15/16 04:00 Pulse Ox 98 11/15/16 04:00 Intake & Output 11/14/16 11/15/16 11/15/16 18:59 06:59 18:59 Intake Total 700 500 Balance 700 500 Weight (lbs) 71.668 kg 71.668 kg Intake: Intake, IV Amount 50 cefTRIAXone 1 gm In 50 Sodium Chloride 0.9% 50 ml @ 100 mls/hr IV Q24HR [facility] Rx#:[id number] Oral 650 500 Other: # Voids 3 3 # Bowel Movements 0 Active Medications: Current Medications Acetaminophen/Hydrocodone Bitart ([place] 10 Mg/325 Mg) 1 tab PO Q4H PRN PRN Reason: HEADACHE Stop: 11/06/17 08:23 Ceftriaxone Sodium 1 gm/ (Sodium Chloride) 50 mls @ 100 mls/hr IV Q24HR [facility] Stop: 01/12/17 17:59 Last Infusion: 11/14/16 18:04 Dose: Infused Pantoprazole Sodium (Protonix) 40 mg IVP DAILY [facility] Stop: 01/13/17 08:59 Last Admin: 11/15/16 08:39 Dose: 40 mg General: Alert, Oriented x3 HEENT: Atraumatic, PERRLA, EOMI Neck: Supple Cardiovascular: Regular rate, Normal S1, Normal S2 Lungs: Clear to auscultation Abdomen: Bowel sounds Extremities: no Clubbing, no Cyanosis, no Edema - Procedures Procedures: Procedures Procedure Code Date BILAT TUBAL DESTRUCT NEC 66.39 10/18/08 DELIVERY ONLY 56219 10/18/08 DX PROC FETUS/AMNION NEC 75.35 10/11/03 DX ULTRASOUND-GRAV UTER 88.78 10/11/03 MONITORING NOS 75.34 10/09/03 NON-STRESS TEST 22084 10/11/03 INJECT/INFUSE NEC 99.29 06/02/13 LIGATE OVIDUCT(S) ADD-ON 20850 10/18/08 LOW CERVICAL 74.1 10/18/08 MATERNITY CARE PROCEDURE 75243 10/09/03 OB US LIMITED FETUS(S) 25707 10/11/03 Assessment/Plan - Problem List Patient Problems: All Active Problems Epigastric abdominal pain (Acute) R10.13 Thalassemia (Acute) D56.9 - Assessment Assessment: * 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
--- NOTE | 2016-11-15 12:40 | Diagnostic Imaging Report ---
Ultrasound pelvis HISTORY: Vaginal bleeding for 3 months COMPARISON: CT abdomen and pelvis on 09/11/2015 Technique: Longitudinal and transverse sonographic sector images of the pelvis were obtained transabdominally and transvaginally. FINDINGS: Exam is limited due to bowel gas. The uterus measures 13.3 x 5.5 x 6 cm. Endometrium measures 1.1 cm There is a 2.1 cm heterogeneous area along the upper body of the uterus suggestive of a fibroid. Additional nonspecific heterogeneous areas of the uterus are noted possibly representing fibroids. There are cystic lesions of the cervix the largest 2.1 cm, likely representing nabothian cysts. The ovaries are not visualized. No evidence of free fluid. IMPRESSION: Limited examination due to bowel gas. There is suggestion of fibroid changes of the uterus. The endometrium measures 1.1 cm, please correlate with menstrual cycle. Cystic lesion of the cervix including complex cystic lesions suggestive of nabothian cysts. Clinical correlation recommended. The ovaries were not visualized No evidence of free fluid If clinically indicated a repeat ultrasound exam would be helpful for further assessment of these findings.
[2016-11-15] MEDS ORDERED: INSULIN ASPART SLIDING SCALE 100 UNITS/ML UNIT SUBQ SCH (16:30)
[2016-11-15] MEDS: cefTRIAXone 1 GM in Sodium Chloride 0.9% 50 ML IV SCH (18:29)
--- NOTE | 2016-11-16 04:09 | Admit Criteria Form ---
Admit Criteria Forms - Admit Criteria Diagnosis: DIZZINESS Clinical Indications for Admission to Inpatient Care (chitimacha/check or initial the applicable condition/criteria) Admission is indicated for 1 or more of the following (1)(2)(3)(4)(5)(6) [ ]I. Acute bacterial labyrinthitis [ ]II. Cerebellar, brainstem, or cerebral ischemia or hemorrhage(7)(8) [ ]III. A suspected etiology that requires admission for treatment(9) [X ]IV. Inpatient admission required rather than observation care (Also use Dizziness: Observation Care as appropriate)because of ANY ONE of the following: (10)(11)(12)(13)(14) [ ]a) Hemodynamic instability [ ]b) Signs or symptoms that are severe or persistent (e.g., inability to ambulate after observation care treatment [ ]c) Vomiting that is severe or persistent [ ]d) Cardiac arrhythmias of immediate concern [X ]e) Severe (new) neurologic findings requiring inpatient care as indicated by 1 or more of the following(10)(11) [ ]i) Papilledema [ ]ii) Cerebral edema [X ]iii) Mass effect on CT scan [ ]iv) Cerebral bleeding, ischemia or vasospasm (15) [ ]v) Increased intracranial pressure or hydrocephalus(12) (13) [ ]f) Continuous IV infusion of anticoagulation, platelet inhibitor, vasoactive, or antiarrhythmic medication [ ]g) Cerebral bleeding, hydrocephalus, or vasospasm monitoring(16) [ ]h) Increased intracranial pressure or cerebral edema monitoring [ ]i) Other condition, treatment or monitoring requiring inpatient admission Extended stay beyond goal length of stay may be needed for evaluating and treating a specific cause of dizziness, including:(1) (35) [ ]a) Cardiac arrhythmias or conduction defects [ ]b) Myocardial ischemia [ ]c) New-onset vertebrobasilar vascular insufficiency (31) [ ]d) Acute neurologic event causing dizziness [ ]e) Head injury (36) [ ]f) Acute bacterial labyrinthitis (33) [ ]g) Severe acute vestibular neuronitis (19) [ ]h) Acute Meniere disease with intractable symptoms The original [employer] content created by [email or web address] has been revised. The portions of the content which have been revised are identified through the use of italic text or in bold, and [facility] has neither reviewed nor approved the modified material. All other unmodified content is copyright [facility]. Please see references footnoted in the original [facility] edition 2017 Admit Criteria Met?: Yes
[2016-11-16] MEDS: Hydrocodone/APAP 10 mg/325 mg Tab PO PRN ×3 (06:10→20:59)
--- NOTE | 2016-11-16 08:10 | General Progress Note ---
Subjective - Review of Systems Service Date: 11/16/16 Subjective: Awake,alert,no acute distress. Complains of headaches. Had MRI head yesterday. Please see dictated report. Patient to see [facility] Neurologist on Nov 19. MRI does not show midline shift. Patient complains of abdominal pain. feels nauseated. U/S abd negative. U/S pelvis negative. Objective - Results Result Diagrams: 11/15/16 06:05 11/15/16 06:05 Recent Labs: Laboratory Last Values WBC 7.4 Th/cmm (4.8-10.8) 11/15/16 06:05 RBC 3.34 Mil/cmm (3.80-5.10) L 11/15/16 06:05 Hgb 8.0 gm/dL (11.7-15.5) L 11/15/16 06:05 Hct 24.8 % (35.0-45.0) L 11/15/16 06:05 MCV 74.4 fl (81-100) L 11/15/16 06:05 MCH 24.0 pg (27.0-31.0) L 11/15/16 06:05 MCHC Differential 32.2 pg (28.0-36.0) 11/15/16 06:05 RDW 14.7 % (11.5-20.0) 11/15/16 06:05 Plt Count 444 Th/cmm (150-400) H 11/15/16 06:05 MPV 8.3 fl 11/15/16 06:05 Neutrophils % NUT ORCHARDIST 11/15/16 06:05 Lymphocytes % NUT ORCHARDIST 11/15/16 06:05 Monocytes % NUT ORCHARDIST 11/15/16 06:05 Eosinophils % NUT ORCHARDIST 11/15/16 06:05 Basophils % NUT ORCHARDIST 11/15/16 06:05 Neutrophils (Manual) 58 % (40-80) 11/14/16 06:20 Lymphocytes 33 % (20-50) 11/14/16 06:20 Monocytes 7 % (2-10) 11/14/16 06:20 Eosinophils 2 % (0-5) 11/14/16 06:20 Microcytosis 1+ 11/14/16 06:20 PT 9.5 SECONDS (9.5-11.5) 11/13/16 11:22 INR 0.91 (0.5-1.4) 11/13/16 11:22 PTT (Actin FS) 22.5 SECONDS (26.0-38.0) L 11/13/16 11:22 Sodium 134 mEq/L (136-145) L 11/15/16 06:05 Potassium 3.6 mEq/L (3.5-5.1) 11/15/16 06:05 Chloride 103 mEq/L (98-107) 11/15/16 06:05 Carbon Dioxide 26.1 mEq/L (21.0-31.0) 11/15/16 06:05 Anion Gap 8.5 (7.0-16.0) 11/15/16 06:05 BUN 11 mg/dL (7-25) 11/15/16 06:05 Creatinine 0.5 mg/dL (0.6-1.2) L 11/15/16 06:05 Est GFR ( Amer) > 60.0 ml/min (>90) 11/15/16 06:05 Est GFR (Non-Af Amer) > 60.0 ml/min 11/15/16 06:05 BUN/Creatinine Ratio 22.0 11/15/16 06:05 Glucose 98 mg/dL (70-105) 11/15/16 06:05 Calcium 8.6 mg/dL (8.6-10.3) 11/15/16 06:05 Total Bilirubin 0.2 mg/dL (0.3-1.0) L 11/15/16 06:05 AST 14 U/L (13-39) 11/15/16 06:05 ALT 13 U/L (7-52) 11/15/16 06:05 Alkaline Phosphatase 80 U/L (34-104) 11/15/16 06:05 Troponin I 0.02 ng/mL (0.01-0.05) 11/13/16 11:22 Total Protein 6.6 gm/dL (6.0-8.3) 11/15/16 06:05 Albumin 3.7 gm/dL (3.7-5.3) 11/15/16 06:05 Globulin 2.9 gm/dL 11/15/16 06:05 Albumin/Globulin Ratio 1.3 (1.0-1.8) 11/15/16 06:05 Urine Source CLEAN C 11/13/16 11:08 Urine Color RED 11/13/16 11:08 Urine Clarity CLOUDY (CLEAR) H 11/13/16 11:08 Urine pH 7.0 (4.6 - 8.0) 11/13/16 11:08 Ur Specific [place] 1.025 (1.005-1.030) 11/13/16 11:08 Urine Protein >300 mg/dL (NEGATIVE) H 11/13/16 11:08 Urine Glucose (UA) NEGATIVE mg/dL (NEGATIVE) 11/13/16 11:08 Urine Ketones NEGATIVE mg/dL (NEGATIVE) 11/13/16 11:08 Urine Blood LARGE (NEGATIVE) H 11/13/16 11:08 Urine Nitrate NEGATIVE (NEGATIVE) 11/13/16 11:08 Urine Bilirubin NEGATIVE (NEGATIVE) 11/13/16 11:08 Urine Ictotest NEGATIVE (NEGATIVE) 11/13/16 11:08 Urine Urobilinogen 1.0 E.U./dL (0.2 - 1.0) 11/13/16 11:08 Ur Leukocyte Esterase NEGATIVE (NEGATIVE) 11/13/16 11:08 Urine RBC >100 /hpf (0-5) H 11/13/16 11:08 Urine WBC 0-2 /hpf (0-5) 11/13/16 11:08 Ur Epithelial Cells RARE /lpf (FEW) 11/13/16 11:08 Urine Bacteria 2+ /hpf (NONE SEEN) H 11/13/16 11:08 Urine Test NEGATIVE 11/13/16 11:08 Blood Type O POSITIVE 11/13/16 11:22 Antibody Screen NEGATIVE 11/13/16 11:22 - Physical Exam Vitals and I&O: Vital Signs Temp 97.4 F 11/16/16 03:58 Pulse 66 11/16/16 03:58 Resp 18 11/16/16 03:58 BP 114/70 11/16/16 03:58 Pulse Ox 98 11/16/16 03:58 Intake & Output 11/15/16 11/16/16 11/16/16 18:59 06:59 18:59 Intake Total 550 200 Balance 550 200 Weight (lbs) 71.668 kg 65.635 kg Intake: Oral 550 200 Other: # Voids 4 3 # Bowel Movements 0 Active Medications: Current Medications Acetaminophen/Hydrocodone Bitart ([place] 10 Mg/325 Mg) 1 tab PO Q4H PRN PRN Reason: HEADACHE Stop: 01/14/17 08:23 Last Admin: 11/16/16 06:10 Dose: 1 tab Ceftriaxone Sodium 1 gm/ (Sodium Chloride) 50 mls @ 100 mls/hr IV Q24HR [facility] Stop: 01/12/17 17:59 Last Admin: 11/15/16 18:29 Dose: 100 mls/hr Losartan Potassium (Cozaar) 50 mg PO DAILY [facility] Stop: 01/15/17 08:59 Pantoprazole Sodium (Protonix) 40 mg IVP DAILY [facility] Stop: 01/13/17 08:59 Last Admin: 11/15/16 08:39 Dose: 40 mg General: Alert, Oriented x3 HEENT: Atraumatic, PERRLA, EOMI Neck: Supple Cardiovascular: Regular rate, Normal S1, Normal S2 Lungs: Clear to auscultation Abdomen: Bowel sounds Extremities: no Clubbing, no Cyanosis, no Edema - Procedures Procedures: Procedures Procedure Code Date BILAT TUBAL DESTRUCT NEC 66.39 10/18/08 DELIVERY ONLY 64640 10/18/08 DX PROC FETUS/AMNION NEC 75.35 10/11/03 DX ULTRASOUND-GRAV UTER 88.78 10/11/03 MONITORING NOS 75.34 10/09/03 NON-STRESS TEST 19275 10/11/03 INJECT/INFUSE NEC 99.29 06/02/13 LIGATE OVIDUCT(S) ADD-ON 51390 10/18/08 LOW CERVICAL 74.1 10/18/08 MATERNITY CARE PROCEDURE 64701 10/09/03 OB US LIMITED FETUS(S) 38540 10/11/03 Assessment/Plan - Problem List Patient Problems: All Active Problems Anemia (Acute) D64.9 Brain tumor (Acute) D49.6 Dizziness (Acute) R42 Hypokalemia (Acute) E87.6 Thalassemia (Acute) D56.9 UTI (urinary tract infection) (Acute) Epigastric abdominal pain (Acute) R10.13 Thalassemia (Acute) D56.9 - Assessment Assessment: abdominal pain ... GI consult. U/S bad/pelvis negative. dizziness ... h/o thalessemia anemia Hg 8-7.9 ... repeat CBC. Hematology consult brain CA noted on CT head ... for MRI head today. Neuro consult UTI ... will order Rocephin 1gm IV hypokalemia ... improved. - Plan Plan: dizziness h/o thalessemia anemia Hg 8-7.9 ... repeat CBC. Hematology consult brain CA noted on CT head ... for MRI head today. Neuro consult UTI ... will order Rocephin 1gm IV hypokalemia ... improved.
[2016-11-16 10:19] LABS: FOLIC ACID 7.7 ng/mL (>3.0)
--- NOTE | 2016-11-16 11:28 | Diagnostic Imaging Report ---
Exam: CT examination of the abdomen pelvis. HISTORY: Abdominal pain Total DLP equals 482 CTDI equals 9.3 Findings Multiple contiguous thin section of the abdomen pelvis were obtained from a lower thorax to pubic symphysis without the administration of oral or intravenous contrast material. No prior studies available comparison. The study demonstrates normal aeration of lung parenchyma the bases. The liver and spleen are normal. The stomach distended with fluid content. The gallbladder is intact. The pancreas is normal. The adrenal glands are normal. The kidneys demonstrate no evidence of obstructive uropathy or nephrolithiasis. Large amount of fecal content throughout the colon consistent with fecal impaction. The appendix not visualized. The uterus is enlarged. There is evidence of for a low density round lesion in the lower segment of uterus measuring 2 cm diameter. This might represent fibroid ultrasound examination of the pelvis is recommended. The urinary bladder is contracted. Bony structures demonstrate no evidence for lytic or blastic structures. IMPRESSION:. 1. Large amount of fecal material throughout the colon. 2. Prominent uterus with a low density round lesion in inferior portion of uterus measuring 2 cm diameter clinical correlation, ultrasound summation pelvis may helpful.
--- NOTE | 2016-11-16 16:43 | General Progress Note ---
Subjective - Review of Systems Service Date: 11/16/16 Events since last encounter: no sz Objective - Results Result Diagrams: 11/15/16 06:05 11/15/16 06:05 Recent Labs: Laboratory Last Values WBC 7.4 Th/cmm (4.8-10.8) 11/15/16 06:05 RBC 3.34 Mil/cmm (3.80-5.10) L 11/15/16 06:05 Hgb 8.0 gm/dL (11.7-15.5) L 11/15/16 06:05 Hct 24.8 % (35.0-45.0) L 11/15/16 06:05 MCV 74.4 fl (81-100) L 11/15/16 06:05 MCH 24.0 pg (27.0-31.0) L 11/15/16 06:05 MCHC Differential 32.2 pg (28.0-36.0) 11/15/16 06:05 RDW 14.7 % (11.5-20.0) 11/15/16 06:05 Plt Count 444 Th/cmm (150-400) H 11/15/16 06:05 MPV 8.3 fl 11/15/16 06:05 Neutrophils % PRINCIPAL CONSULTANT 11/15/16 06:05 Lymphocytes % PRINCIPAL CONSULTANT 11/15/16 06:05 Monocytes % PRINCIPAL CONSULTANT 11/15/16 06:05 Eosinophils % PRINCIPAL CONSULTANT 11/15/16 06:05 Basophils % PRINCIPAL CONSULTANT 11/15/16 06:05 Neutrophils (Manual) 58 % (40-80) 11/14/16 06:20 Lymphocytes 33 % (20-50) 11/14/16 06:20 Monocytes 7 % (2-10) 11/14/16 06:20 Eosinophils 2 % (0-5) 11/14/16 06:20 Microcytosis 1+ 11/14/16 06:20 PT 9.5 SECONDS (9.5-11.5) 11/13/16 11:22 INR 0.91 (0.5-1.4) 11/13/16 11:22 PTT (Actin FS) 22.5 SECONDS (26.0-38.0) L 11/13/16 11:22 Sodium 134 mEq/L (136-145) L 11/15/16 06:05 Potassium 3.6 mEq/L (3.5-5.1) 11/15/16 06:05 Chloride 103 mEq/L (98-107) 11/15/16 06:05 Carbon Dioxide 26.1 mEq/L (21.0-31.0) 11/15/16 06:05 Anion Gap 8.5 (7.0-16.0) 11/15/16 06:05 BUN 11 mg/dL (7-25) 11/15/16 06:05 Creatinine 0.5 mg/dL (0.6-1.2) L 11/15/16 06:05 Est GFR ( Amer) > 60.0 ml/min (>90) 11/15/16 06:05 Est GFR (Non-Af Amer) > 60.0 ml/min 11/15/16 06:05 BUN/Creatinine Ratio 22.0 11/15/16 06:05 Glucose 98 mg/dL (70-105) 11/15/16 06:05 Calcium 8.6 mg/dL (8.6-10.3) 11/15/16 06:05 Total Bilirubin 0.2 mg/dL (0.3-1.0) L 11/15/16 06:05 AST 14 U/L (13-39) 11/15/16 06:05 ALT 13 U/L (7-52) 11/15/16 06:05 Alkaline Phosphatase 80 U/L (34-104) 11/15/16 06:05 Troponin I 0.02 ng/mL (0.01-0.05) 11/13/16 11:22 Total Protein 6.6 gm/dL (6.0-8.3) 11/15/16 06:05 Albumin 3.7 gm/dL (3.7-5.3) 11/15/16 06:05 Globulin 2.9 gm/dL 11/15/16 06:05 Albumin/Globulin Ratio 1.3 (1.0-1.8) 11/15/16 06:05 Vitamin B12 584 pg/mL (211-946) 11/15/16 06:05 Folic Acid 7.7 ng/mL (>3.0) 11/15/16 06:05 Urine Source CLEAN C 11/13/16 11:08 Urine Color RED 11/13/16 11:08 Urine Clarity CLOUDY (CLEAR) H 11/13/16 11:08 Urine pH 7.0 (4.6 - 8.0) 11/13/16 11:08 Ur Specific [place] 1.025 (1.005-1.030) 11/13/16 11:08 Urine Protein >300 mg/dL (NEGATIVE) H 11/13/16 11:08 Urine Glucose (UA) NEGATIVE mg/dL (NEGATIVE) 11/13/16 11:08 Urine Ketones NEGATIVE mg/dL (NEGATIVE) 11/13/16 11:08 Urine Blood LARGE (NEGATIVE) H 11/13/16 11:08 Urine Nitrate NEGATIVE (NEGATIVE) 11/13/16 11:08 Urine Bilirubin NEGATIVE (NEGATIVE) 11/13/16 11:08 Urine Ictotest NEGATIVE (NEGATIVE) 11/13/16 11:08 Urine Urobilinogen 1.0 E.U./dL (0.2 - 1.0) 11/13/16 11:08 Ur Leukocyte Esterase NEGATIVE (NEGATIVE) 11/13/16 11:08 Urine RBC >100 /hpf (0-5) H 11/13/16 11:08 Urine WBC 0-2 /hpf (0-5) 11/13/16 11:08 Ur Epithelial Cells RARE /lpf (FEW) 11/13/16 11:08 Urine Bacteria 2+ /hpf (NONE SEEN) H 11/13/16 11:08 Urine Test NEGATIVE 11/13/16 11:08 Blood Type O POSITIVE 11/13/16 11:22 Antibody Screen NEGATIVE 11/13/16 11:22 - Physical Exam Vitals and I&O: Vital Signs Temp 98.2 F 11/16/16 11:00 Pulse 76 11/16/16 11:00 Resp 17 11/16/16 11:00 BP 166/106 11/16/16 11:00 Pulse Ox 106 11/16/16 11:00 Intake & Output 11/15/16 11/16/16 11/16/16 18:59 06:59 18:59 Intake Total 550 200 Balance 550 200 Weight (lbs) 71.668 kg 65.635 kg Intake: Oral 550 200 Other: # Voids 4 3 # Bowel Movements 0 Active Medications: Current Medications Acetaminophen/Hydrocodone Bitart ([place] 10 Mg/325 Mg) 1 tab PO Q4H PRN PRN Reason: HEADACHE Stop: 01/14/17 08:23 Last Admin: 11/16/16 11:14 Dose: 1 tab Docusate Sodium (Colace) 100 mg PO BID [facility] Stop: 01/15/17 16:59 Ceftriaxone Sodium 1 gm/ (Sodium Chloride) 50 mls @ 100 mls/hr IV Q24HR [facility] Stop: 01/12/17 17:59 Last Admin: 11/15/16 18:29 Dose: 100 mls/hr Losartan Potassium (Cozaar) 50 mg PO DAILY [facility] Stop: 01/15/17 08:59 Last Admin: 11/16/16 09:01 Dose: 50 mg Pantoprazole Sodium (Protonix) 40 mg IVP DAILY [facility] Stop: 01/13/17 08:59 Last Admin: 11/16/16 09:01 Dose: 40 mg General: Alert, Oriented x3 HEENT: Atraumatic, PERRLA, EOMI Neck: Supple Cardiovascular: Regular rate, Normal S1, Normal S2 Lungs: Clear to auscultation Abdomen: Bowel sounds Extremities: no Clubbing, no Cyanosis, no Edema - Procedures Procedures: Procedures Procedure Code Date BILAT TUBAL DESTRUCT NEC 66.39 10/18/08 DELIVERY ONLY 73387 10/18/08 DX PROC FETUS/AMNION NEC 75.35 10/11/03 DX ULTRASOUND-GRAV UTER 88.78 10/11/03 MONITORING NOS 75.34 10/09/03 NON-STRESS TEST 74862 10/11/03 INJECT/INFUSE NEC 99.29 06/02/13 LIGATE OVIDUCT(S) ADD-ON 44816 10/18/08 LOW CERVICAL 74.1 10/18/08 MATERNITY CARE PROCEDURE 91653 10/09/03 OB US LIMITED FETUS(S) 13810 10/11/03 Assessment/Plan - Problem List Patient Problems: All Active Problems Anemia (Acute) D64.9 Brain tumor (Acute) D49.6 Dizziness (Acute) R42 Hypokalemia (Acute) E87.6 Thalassemia (Acute) D56.9 UTI (urinary tract infection) (Acute) Epigastric abdominal pain (Acute) R10.13 Thalassemia (Acute) D56.9 - Assessment Assessment: * 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 follow hgb
[2016-11-16] MEDS ORDERED: Magnesium Citrate 1.75 GM/300 mL Bottle PO ONE (16:52)
[2016-11-16] MEDS: cefTRIAXone 1 GM in Sodium Chloride 0.9% 50 ML IV SCH (17:38)
--- NOTE | 2016-11-17 02:01 | Progress Notes ---
DATE: 11/16/2016 This is a neurology progress note. SUBJECTIVE: The patient is in bed, awake and alert, some headache. Dizziness less. The patient is talking okay. Speech okay. OBJECTIVE: VITAL SIGNS: Temperature 98.2, blood pressure 135/80, ____, pulse is 72. NECK: Supple. NEUROLOGICAL: Good canteen attendant bilaterally. I do not see much weakness. 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 2.Headaches. 3.Anemia. 4.The patient with history of thalassemia. PLAN: At this time, the patient should be referred to ____ Neurosurgical and Oncology Services. Continue present management. JOB# [id number]
[2016-11-17 04:09] LABS: FERRITIN 3 ng/mL (15-150); IRON SATURATION 2 % (15-55); TIBC (LCI) 461 ug/dL (250-450); UIBC 453 ug/dL (131-425)
--- NOTE | 2016-11-17 06:04 | General Progress Note ---
Subjective - Review of Systems Service Date: 11/17/16 Subjective: Awake,alert,no acute distress. Complains of headaches. Had MRI head yesterday. Please see dictated report. Patient to see [facility] Neurologist on Nov 19. MRI does not show midline shift. Patient complains of abdominal pain. feels nauseated. U/S abd negative. U/S pelvis negative. CT abd shows constipation. Patient has an appointment with [facility] Neurology on Nov 19 as outpatient. Objective - Results Result Diagrams: 11/15/16 06:05 11/15/16 06:05 Recent Labs: Laboratory Last Values WBC 7.4 Th/cmm (4.8-10.8) 11/15/16 06:05 RBC 3.34 Mil/cmm (3.80-5.10) L 11/15/16 06:05 Hgb 8.0 gm/dL (11.7-15.5) L 11/15/16 06:05 Hct 24.8 % (35.0-45.0) L 11/15/16 06:05 MCV 74.4 fl (81-100) L 11/15/16 06:05 MCH 24.0 pg (27.0-31.0) L 11/15/16 06:05 MCHC Differential 32.2 pg (28.0-36.0) 11/15/16 06:05 RDW 14.7 % (11.5-20.0) 11/15/16 06:05 Plt Count 444 Th/cmm (150-400) H 11/15/16 06:05 MPV 8.3 fl 11/15/16 06:05 Neutrophils % PROVIDER SCRIBE 11/15/16 06:05 Lymphocytes % PROVIDER SCRIBE 11/15/16 06:05 Monocytes % PROVIDER SCRIBE 11/15/16 06:05 Eosinophils % PROVIDER SCRIBE 11/15/16 06:05 Basophils % PROVIDER SCRIBE 11/15/16 06:05 Neutrophils (Manual) 58 % (40-80) 11/14/16 06:20 Lymphocytes 33 % (20-50) 11/14/16 06:20 Monocytes 7 % (2-10) 11/14/16 06:20 Eosinophils 2 % (0-5) 11/14/16 06:20 Microcytosis 1+ 11/14/16 06:20 PT 9.5 SECONDS (9.5-11.5) 11/13/16 11:22 INR 0.91 (0.5-1.4) 11/13/16 11:22 PTT (Actin FS) 22.5 SECONDS (26.0-38.0) L 11/13/16 11:22 Sodium 134 mEq/L (136-145) L 11/15/16 06:05 Potassium 3.6 mEq/L (3.5-5.1) 11/15/16 06:05 Chloride 103 mEq/L (98-107) 11/15/16 06:05 Carbon Dioxide 26.1 mEq/L (21.0-31.0) 11/15/16 06:05 Anion Gap 8.5 (7.0-16.0) 11/15/16 06:05 BUN 11 mg/dL (7-25) 11/15/16 06:05 Creatinine 0.5 mg/dL (0.6-1.2) L 11/15/16 06:05 Est GFR ( Amer) > 60.0 ml/min (>90) 11/15/16 06:05 Est GFR (Non-Af Amer) > 60.0 ml/min 11/15/16 06:05 BUN/Creatinine Ratio 22.0 11/15/16 06:05 Glucose 98 mg/dL (70-105) 11/15/16 06:05 Calcium 8.6 mg/dL (8.6-10.3) 11/15/16 06:05 Iron 8 ug/dL (27-159) L 11/15/16 06:05 TIBC 461 ug/dL (250-450) H 11/15/16 06:05 Iron Saturation 2 % (15-55) L 11/15/16 06:05 Unsaturated IBC 453 ug/dL (131-425) H 11/15/16 06:05 Ferritin 3 ng/mL (15-150) L 11/15/16 06:05 Total Bilirubin 0.2 mg/dL (0.3-1.0) L 11/15/16 06:05 AST 14 U/L (13-39) 11/15/16 06:05 ALT 13 U/L (7-52) 11/15/16 06:05 Alkaline Phosphatase 80 U/L (34-104) 11/15/16 06:05 Troponin I 0.02 ng/mL (0.01-0.05) 11/13/16 11:22 Total Protein 6.6 gm/dL (6.0-8.3) 11/15/16 06:05 Albumin 3.7 gm/dL (3.7-5.3) 11/15/16 06:05 Globulin 2.9 gm/dL 11/15/16 06:05 Albumin/Globulin Ratio 1.3 (1.0-1.8) 11/15/16 06:05 Vitamin B12 584 pg/mL (211-946) 11/15/16 06:05 Folic Acid 7.7 ng/mL (>3.0) 11/15/16 06:05 Urine Source CLEAN C 11/13/16 11:08 Urine Color RED 11/13/16 11:08 Urine Clarity CLOUDY (CLEAR) H 11/13/16 11:08 Urine pH 7.0 (4.6 - 8.0) 11/13/16 11:08 Ur Specific [place] 1.025 (1.005-1.030) 11/13/16 11:08 Urine Protein >300 mg/dL (NEGATIVE) H 11/13/16 11:08 Urine Glucose (UA) NEGATIVE mg/dL (NEGATIVE) 11/13/16 11:08 Urine Ketones NEGATIVE mg/dL (NEGATIVE) 11/13/16 11:08 Urine Blood LARGE (NEGATIVE) H 11/13/16 11:08 Urine Nitrate NEGATIVE (NEGATIVE) 11/13/16 11:08 Urine Bilirubin NEGATIVE (NEGATIVE) 11/13/16 11:08 Urine Ictotest NEGATIVE (NEGATIVE) 11/13/16 11:08 Urine Urobilinogen 1.0 E.U./dL (0.2 - 1.0) 11/13/16 11:08 Ur Leukocyte Esterase NEGATIVE (NEGATIVE) 11/13/16 11:08 Urine RBC >100 /hpf (0-5) H 11/13/16 11:08 Urine WBC 0-2 /hpf (0-5) 11/13/16 11:08 Ur Epithelial Cells RARE /lpf (FEW) 11/13/16 11:08 Urine Bacteria 2+ /hpf (NONE SEEN) H 11/13/16 11:08 Urine Test NEGATIVE 11/13/16 11:08 Stool Occult Blood NEGATIVE (NEGATIVE) 11/16/16 22:11 Blood Type O POSITIVE 11/13/16 11:22 Antibody Screen NEGATIVE 11/13/16 11:22 - Physical Exam Vitals and I&O: Vital Signs Temp 98.4 F 11/17/16 04:00 Pulse 95 11/17/16 04:00 Resp 19 11/17/16 04:00 BP 124/75 11/17/16 04:00 Pulse Ox 94 11/17/16 04:00 Intake & Output 11/16/16 11/16/16 11/17/16 06:59 18:59 06:59 Intake Total 200 600 Balance 200 600 Weight (lbs) 65.635 kg 65.635 kg 65.635 kg Intake: Oral 200 600 Other: # Voids 3 4 # Bowel Movements 0 Active Medications: Current Medications Acetaminophen/Hydrocodone Bitart ([place] 10 Mg/325 Mg) 1 tab PO Q4H PRN PRN Reason: HEADACHE Stop: 01/14/17 08:23 Last Admin: 11/16/16 20:59 Dose: 1 tab Docusate Sodium (Colace) 100 mg PO BID TELLO Stop: 01/15/17 16:59 Last Admin: 11/16/16 17:38 Dose: 100 mg Ceftriaxone Sodium 1 gm/ (Sodium Chloride) 50 mls @ 100 mls/hr IV Q24HR TELLO Stop: 01/12/17 17:59 Last Admin: 11/16/16 17:38 Dose: 100 mls/hr Losartan Potassium (Cozaar) 50 mg PO DAILY TELLO Stop: 01/15/17 08:59 Last Admin: 11/16/16 09:01 Dose: 50 mg Ondansetron HCl (Zofran) 4 mg IV Q6H PRN PRN Reason: Nausea / Vomiting Stop: 01/15/17 22:59 Pantoprazole Sodium (Protonix) 40 mg IVP DAILY TELLO Stop: 01/13/17 08:59 Last Admin: 11/16/16 09:01 Dose: 40 mg General: Alert, Oriented x3 HEENT: Atraumatic, PERRLA, EOMI Neck: Supple Cardiovascular: Regular rate, Normal S1, Normal S2 Lungs: Clear to auscultation Abdomen: Bowel sounds Extremities: no Clubbing, no Cyanosis, no Edema - Procedures Procedures: Procedures Procedure Code Date BILAT TUBAL DESTRUCT NEC 66.39 10/18/08 DELIVERY ONLY 38417 10/18/08 DX PROC FETUS/AMNION NEC 75.35 10/11/03 DX ULTRASOUND-GRAV UTER 88.78 10/11/03 MONITORING NOS 75.34 10/09/03 NON-STRESS TEST 90031 10/11/03 INJECT/INFUSE NEC 99.29 06/02/13 LIGATE OVIDUCT(S) ADD-ON 46184 10/18/08 LOW CERVICAL 74.1 10/18/08 MATERNITY CARE PROCEDURE 94402 10/09/03 OB US LIMITED FETUS(S) 18656 10/11/03 Assessment/Plan - Problem List Patient Problems: All Active Problems Anemia (Acute) D64.9 Brain tumor (Acute) D49.6 Dizziness (Acute) R42 Hypokalemia (Acute) E87.6 Thalassemia (Acute) D56.9 UTI (urinary tract infection) (Acute) Epigastric abdominal pain (Acute) R10.13 Thalassemia (Acute) D56.9 - Assessment Assessment: abdominal pain ... GI consult. U/S bad/pelvis negative. CT abd shows constipation dizziness ... improved h/o thalessemia ....stable anemia Hg 8-7.9 ... repeat CBC. Hematology consult. please dictated report brain CA noted on CT head ... for MRI head today. Neuro consult. please see dictated report. Patient has an appointment with [facility] on Nov 19 and will f/u as outpatient. UTI ... will order Rocephin 1gm IV. Will DC hypokalemia ... improved. - Plan Plan: abdominal pain ... GI consult. U/S bad/pelvis negative. CT abd shows constipation dizziness ... improved h/o thalessemia ....stable anemia Hg 8-7.9 ... repeat CBC. Hematology consult. please dictated report brain CA noted on CT head ... for MRI head today. Neuro consult. please see dictated report. Patient has an appointment with [facility] on Nov 19 and will f/u as outpatient. UTI ... will order Rocephin 1gm IV. Will DC hypokalemia ... improved.
[2016-11-17] MEDS: Hydrocodone/APAP 10 mg/325 mg Tab PO PRN ×2 (06:29→11:58)
[2016-11-17 06:44] LABS: HEMATOCRIT 25.3 % (35.0-45.0); HEMOGLOBIN 8.2 gm/dL (11.7-15.5); MEAN CELL VOLUME 73.4 fl (81-100); MEAN CORPUSCULAR HEMOGLOBIN 23.8 pg (27.0-31.0); MEAN CORPUSCULAR HGB CONC 32.4 pg (28.0-36.0); MEAN PLATELET VOLUME 7.8 fl; PLATELET COUNT 515 Th/cmm (150-400); RED BLOOD COUNT 3.45 Mil/cmm (3.80-5.10); RED CELL DISTRIBUTION WIDTH 14.9 % (11.5-20.0); WHITE BLOOD COUNT 7.2 Th/cmm (4.8-10.8)
--- NOTE | 2016-11-17 06:45 | Consultation ---
DATE OF CONSULTATION: 11/16/2016 REASON FOR CONSULTATION: Nausea, vomiting, and rectal bleeding. HISTORY OF PRESENT ILLNESS: This consult was obtained through the request of Dr. Brizuela for this 46-year-old with history of brain tumor, admitted to the hospital because of dizziness and headache. She was found to be anemic. She had history of blood transfusion and history of thalassemia. Apparently, the patient is followed somewhere in [place]. While in the hospital, she started having nausea and today she vomited and she gave the history of rectal bleeding. She has abdominal pain, but it is ____ slow. There is no weight loss. PAST MEDICAL HISTORY: Brain tumor. PAST SURGICAL HISTORY: . SOCIAL HISTORY: Nonsmoker, nonalcoholic, IV drug abuser. FAMILY HISTORY: Grandmother had uterine cancer. SOCIAL HISTORY: Nonsmoker, nonalcoholic, IV drug abuser. REVIEW OF SYSTEMS: No weight loss, no hematemesis, no jaundice. PHYSICAL EXAMINATION: GENERAL: The patient is awake, oriented to self, place, and time, in no acute distress. VITAL SIGNS: Blood pressure is 166/106, heart rate is 76, respiratory rate is 17, temperature is 98.2. HEAD AND NECK: Pupils reactive to light. Extraocular muscles intact. Sclerae are anicteric, conjunctivae pale. Oral cavity, no lesion. NECK: Supple, no jugular venous distention, no carotid bruit or lymph node. CHEST: Good respiratory movements. LUNGS: Clear to auscultation. CARDIOVASCULAR: Regular rate and rhythm. No murmur or gallop. ABDOMEN: Soft. Positive bowel sounds. Mild infraumbilical tenderness. EXTREMITIES: Lower extremities, no edema. CENTRAL NERVOUS SYSTEM: Nonfocal. LABORATORY DATA: Hemoglobin 8, MCV 74.4. Liver enzymes are normal. Albumin is normal. Ultrasound did not show any gallstones. CAT scan showed increased fecal material. ASSESSMENT AND PLAN: 1. Nausea and vomiting, most probably related to the tumor, cannot exclude peptic ulcer disease versus esophagitis. Recommendations: 1. PPI. 2. Monitor labs. 3. If no improvement, then endoscopy. 2. Constipation, most likely this was causing the bleeding as well, but the patient needs further evaluation, so we will start giving her some laxatives and once she starts having bowel movement, consideration will be for colonoscopy if she is still here. 3. Rectal bleeding, could be hemorrhoids, especially with constipation, but again the patient should have a colonoscopy if she is still here. Other medical problems such as brain tumor as per Dr. Brizuela. Thank you, Dr. Brizuela for allowing me to participate in the care of the patient. If you have any further questions, please let me know. JOB# [id number]
[2016-11-17 07:01] LABS: ANION GAP 7.1 (7.0-16.0); BUN - UREA NITROGEN 10 mg/dL (7-25); CALCIUM SERUM 8.8 mg/dL (8.6-10.3); CARBON DIOXIDE 29.4 mEq/L (21.0-31.0); CHLORIDE 101 mEq/L (98-107); CREATININE - SERUM 0.5 mg/dL (0.6-1.2); GLUCOSE 102 mg/dL (70-105); POTASSIUM SERUM 3.5 mEq/L (3.5-5.1); SODIUM SERUM 134 mEq/L (136-145)
[2016-11-17 08:31] LABS: ANISOCYTOSIS 1+; BAND NEUTROPHILE 6 % (0-10); NEUTROPHILS 49 % (40-80); PLATELET ESTIMATE INCREASED PLATELETS (NORMAL); PLATELET MORPHOLOGY NORMAL (NORMAL); TOTAL CELLS COUNTED 100
[2016-11-17 12:09] LABS: FOLIC ACID 9.1 ng/mL (>3.0)
--- NOTE | 2016-11-17 12:30 | General Progress Note ---
Subjective - Review of Systems Service Date: 11/17/16 Events since last encounter: headache Objective - Results Result Diagrams: 11/17/16 06:18 11/17/16 06:18 Recent Labs: Laboratory Last Values WBC 7.2 Th/cmm (4.8-10.8) 11/17/16 06:18 RBC 3.45 Mil/cmm (3.80-5.10) L 11/17/16 06:18 Hgb 8.2 gm/dL (11.7-15.5) L 11/17/16 06:18 Hct 25.3 % (35.0-45.0) L 11/17/16 06:18 MCV 73.4 fl (81-100) L 11/17/16 06:18 MCH 23.8 pg (27.0-31.0) L 11/17/16 06:18 MCHC Differential 32.4 pg (28.0-36.0) 11/17/16 06:18 RDW 14.9 % (11.5-20.0) 11/17/16 06:18 Plt Count 515 Th/cmm (150-400) H 11/17/16 06:18 MPV 7.8 fl 11/17/16 06:18 Neutrophils % WEB CONTENT COORDINATOR 11/15/16 06:05 Band Neutrophils % 6 % (0-10) 11/17/16 06:18 Lymphocytes % WEB CONTENT COORDINATOR 11/15/16 06:05 Monocytes % WEB CONTENT COORDINATOR 11/15/16 06:05 Eosinophils % WEB CONTENT COORDINATOR 11/15/16 06:05 Basophils % WEB CONTENT COORDINATOR 11/15/16 06:05 Neutrophils (Manual) 49 % (40-80) 11/17/16 06:18 Lymphocytes 44 % (20-50) 11/17/16 06:18 Monocytes 1 % (2-10) L 11/17/16 06:18 Eosinophils 2 % (0-5) 11/14/16 06:20 Platelet Estimate INCREASED PLATELETS (NORMAL) 11/17/16 06:18 Platelet Morphology NORMAL (NORMAL) 11/17/16 06:18 Anisocytosis 1+ 11/17/16 06:18 Microcytosis 1+ 11/14/16 06:20 RBC Morph Micro Appear ABNORMAL (NORMAL) 11/17/16 06:18 PT 9.5 SECONDS (9.5-11.5) 11/13/16 11:22 INR 0.91 (0.5-1.4) 11/13/16 11:22 PTT (Actin FS) 22.5 SECONDS (26.0-38.0) L 11/13/16 11:22 Sodium 134 mEq/L (136-145) L 11/17/16 06:18 Potassium 3.5 mEq/L (3.5-5.1) 11/17/16 06:18 Chloride 101 mEq/L (98-107) 11/17/16 06:18 Carbon Dioxide 29.4 mEq/L (21.0-31.0) 11/17/16 06:18 Anion Gap 7.1 (7.0-16.0) 11/17/16 06:18 BUN 10 mg/dL (7-25) 11/17/16 06:18 Creatinine 0.5 mg/dL (0.6-1.2) L 11/17/16 06:18 Est GFR ( Amer) > 60.0 ml/min (>90) 11/17/16 06:18 Est GFR (Non-Af Amer) > 60.0 ml/min 11/17/16 06:18 BUN/Creatinine Ratio 20.0 11/17/16 06:18 Glucose 102 mg/dL (70-105) 11/17/16 06:18 Calcium 8.8 mg/dL (8.6-10.3) 11/17/16 06:18 Iron 8 ug/dL (27-159) L 11/15/16 06:05 TIBC 461 ug/dL (250-450) H 11/15/16 06:05 Iron Saturation 2 % (15-55) L 11/15/16 06:05 Unsaturated IBC 453 ug/dL (131-425) H 11/15/16 06:05 Ferritin 3 ng/mL (15-150) L 11/15/16 06:05 Total Bilirubin 0.2 mg/dL (0.3-1.0) L 11/15/16 06:05 AST 14 U/L (13-39) 11/15/16 06:05 ALT 13 U/L (7-52) 11/15/16 06:05 Alkaline Phosphatase 80 U/L (34-104) 11/15/16 06:05 Troponin I 0.02 ng/mL (0.01-0.05) 11/13/16 11:22 Total Protein 6.6 gm/dL (6.0-8.3) 11/15/16 06:05 Albumin 3.7 gm/dL (3.7-5.3) 11/15/16 06:05 Globulin 2.9 gm/dL 11/15/16 06:05 Albumin/Globulin Ratio 1.3 (1.0-1.8) 11/15/16 06:05 Vitamin B12 604 pg/mL (211-946) 11/16/16 17:41 Folic Acid 9.1 ng/mL (>3.0) 11/16/16 17:41 Urine Source CLEAN C 11/13/16 11:08 Urine Color RED 11/13/16 11:08 Urine Clarity CLOUDY (CLEAR) H 11/13/16 11:08 Urine pH 7.0 (4.6 - 8.0) 11/13/16 11:08 Ur Specific [place] 1.025 (1.005-1.030) 11/13/16 11:08 Urine Protein >300 mg/dL (NEGATIVE) H 11/13/16 11:08 Urine Glucose (UA) NEGATIVE mg/dL (NEGATIVE) 11/13/16 11:08 Urine Ketones NEGATIVE mg/dL (NEGATIVE) 11/13/16 11:08 Urine Blood LARGE (NEGATIVE) H 11/13/16 11:08 Urine Nitrate NEGATIVE (NEGATIVE) 11/13/16 11:08 Urine Bilirubin NEGATIVE (NEGATIVE) 11/13/16 11:08 Urine Ictotest NEGATIVE (NEGATIVE) 11/13/16 11:08 Urine Urobilinogen 1.0 E.U./dL (0.2 - 1.0) 11/13/16 11:08 Ur Leukocyte Esterase NEGATIVE (NEGATIVE) 11/13/16 11:08 Urine RBC >100 /hpf (0-5) H 11/13/16 11:08 Urine WBC 0-2 /hpf (0-5) 11/13/16 11:08 Ur Epithelial Cells RARE /lpf (FEW) 11/13/16 11:08 Urine Bacteria 2+ /hpf (NONE SEEN) H 11/13/16 11:08 Urine Test NEGATIVE 11/13/16 11:08 Stool Occult Blood NEGATIVE (NEGATIVE) 11/16/16 22:11 Blood Type O POSITIVE 11/13/16 11:22 Antibody Screen NEGATIVE 11/13/16 11:22 - Physical Exam Vitals and I&O: Vital Signs Temp 98.1 F 11/17/16 08:00 Pulse 78 11/17/16 08:53 Resp 19 11/17/16 10:54 BP 145/83 11/17/16 08:53 Pulse Ox 98 11/17/16 08:00 Intake & Output 11/16/16 11/17/16 11/17/16 18:59 06:59 18:59 Intake Total 600 Balance 600 Weight (lbs) 65.635 kg 65.635 kg Intake: Oral 600 Other: # Voids 4 Active Medications: Current Medications Acetaminophen/Hydrocodone Bitart ([place] 10 Mg/325 Mg) 1 tab PO Q4H PRN PRN Reason: HEADACHE Stop: 01/14/17 08:23 Last Admin: 11/17/16 11:58 Dose: 1 tab Docusate Sodium (Colace) 100 mg PO BID [facility] Stop: 01/15/17 16:59 Last Admin: 11/17/16 08:53 Dose: 100 mg Losartan Potassium (Cozaar) 50 mg PO DAILY TELLO Stop: 01/15/17 08:59 Last Admin: 11/17/16 08:53 Dose: 50 mg Ondansetron HCl (Zofran) 4 mg IV Q6H PRN PRN Reason: Nausea / Vomiting Stop: 01/15/17 22:59 Last Admin: 11/17/16 08:52 Dose: 4 mg Pantoprazole Sodium (Protonix) 40 mg IVP DAILY [facility] Stop: 01/13/17 08:59 Last Admin: 11/17/16 08:52 Dose: 40 mg General: Alert, Oriented x3 HEENT: Atraumatic, PERRLA, EOMI Neck: Supple Cardiovascular: Regular rate, Normal S1, Normal S2 Lungs: Clear to auscultation Abdomen: Bowel sounds Extremities: no Clubbing, no Cyanosis, no Edema - Procedures Procedures: Procedures Procedure Code Date BILAT TUBAL DESTRUCT NEC 66.39 10/18/08 DELIVERY ONLY 19488 10/18/08 DX PROC FETUS/AMNION NEC 75.35 10/11/03 DX ULTRASOUND-GRAV UTER 88.78 10/11/03 MONITORING NOS 75.34 10/09/03 NON-STRESS TEST 19135 10/11/03 INJECT/INFUSE NEC 99.29 06/02/13 LIGATE OVIDUCT(S) ADD-ON 17680 10/18/08 LOW CERVICAL 74.1 10/18/08 MATERNITY CARE PROCEDURE 97743 10/09/03 OB LIMITED FETUS(S) 14912 10/11/03 Assessment/Plan - Problem List Patient Problems: All Active Problems Anemia (Acute) D64.9 Brain tumor (Acute) D49.6 Dizziness (Acute) R42 Hypokalemia (Acute) E87.6 Thalassemia (Acute) D56.9 UTI (urinary tract infection) (Acute) Epigastric abdominal pain (Acute) R10.13 Thalassemia (Acute) D56.9 - Assessment Assessment: * Right basal ganglia mass on MRI * Anemia of rectal blood loss per report * Anemia of fe deficiency No mass effect or shift no need for decadron will need tertiary care for neurosurgery check ob. follow hgb start iv iron
--- NOTE | 2016-11-19 16:03 | Discharge Summary ---
DATE OF DISCHARGE: 11/17/2016 PRELIMINARY DIAGNOSES: 1. Dizziness. 2. Brain tumor. 3. Anemia. 4. Thalassemia. 5. Hypokalemia. DISCHARGE DIAGNOSES: 1. Dizziness. 2. Brain tumor. 3. Anemia. 4. Thalassemia. 5. Hypokalemia. BRIEF HISTORY OF PRESENT ILLNESS: This is a 46-year-old female who presents to [facility] ER for history of headaches and dizziness x 1 week. The patient has history of anemia with hemoglobin of 8 and was seen by her regular physician a few weeks prior to admission. Has previously had blood transfusion in the past. Has a history of thalassemia. The patient also has a history of brain tumor for the past 3 years; however, was seen and evaluated by neurologist at [facility], and has a point actually on November 19. The patient presents here to the ER with complaints of increased dizziness and headache and was subsequently seen and evaluated in the ER. Her initial lab work, white count was normal at 7.2, hemoglobin was noted to be low at 7.9, hematocrit 24.4, platelets 199. Her PT and INR were normal at 9.5, INR 0.91. Chem-7: Sodium was normal at 136, potassium 3.5, chloride 108, bicarbonate 22, BUN 6, creatinine 0.4, glucose normal 127, slightly elevated. Her liver enzymes were normal. UA did show some cloudiness with blood present in her urine. Her nitrites were negative; however, leukocyte esterase was also negative. CAT scan was done initially, head CT, which did reveal presence of a mass noted in the left basal ganglia extending to the left frontal lobe about 2.5 x 2 cm in size. No mass effect or midline shift was noted on the CT. No evidence of any acute intracranial hemorrhage was noted. The patient was subsequently admitted for further evaluation and treatment. HOSPITAL COURSE: The patient improved during her hospital stay, was seen and evaluated by Neuro. Please see dictated report. The patient did complain of some abdominal pain during her hospital stay. An ultrasound of her abdomen was ordered, which was essentially normal, no acute disease. The patient also had a pelvis ultrasound done as well, which showed a presence of a cyst noted on her uterus, about the size of a 2.1 cm, but other than that, it was essentially normal. Also for her history anemia and thalassemia, please see dictated report. The CT of his abdomen and pelvis was subsequently ordered for further evaluation of her abdominal pain, which did show large amounts of fecal matter throughout the colon consistent with constipation. The patient was given Colace, which helped relieve her constipation. A brain MRI had been ordered to further evaluate the tumor, which did confirm the presence of lesions, approximately 2.0 x 1.9 cm, again no midline was noted. No mass effect was noted. The patient was subsequently discharged in stable condition, was told to follow up with Neurology at [facility], her appointment being on November 19. JOB# [id number]
== END 2016-11-17 16:20 | disposition home or self-care (01) | DRG 58 ==
LOC: ER 10:39 → MSI 17:00
PROVIDERS: ADMIT Family Medicine; ATTEND Family Medicine
DX: D49.6 Neoplasm of unspecified behavior of brain (principal); N39.0 Urinary tract infection, site not specified; R51 Headache; D50.0 Iron deficiency anemia secondary to blood loss (chronic); D56.9 Thalassemia, unspecified; E87.6 Hypokalemia; K62.5 Hemorrhage of anus and rectum; K59.00 Constipation, unspecified; Z85.841 Personal history of malignant neoplasm of brain
CPT/HCPCS: 36415-UA; 70450-TC; 76700-TC; 76856-TC; 80048-TC; 80053-TC; 81001-TC; 81025-TC; 82270-TC; 82607-90; 82728-90; 82746-90; 83540-90; 83550-90; 84484-TC; 85007-TC; 85025-TC; 85027-TC; 85610-TC; 86850-TC; 86900-TC; 86901-TC; 93005; C9113; J0696; J1750; J2405; J7030; J7040; Z7610-TC

== ENCOUNTER 2017-06-28 16:49 | Emergency (ER) | payer MEDICAID ==
[2017-06-28] MEDS ORDERED: Acetaminophen 500 MG TAB PO ONE (17:40)
[2017-06-28] MEDS ORDERED: Acetaminophen 500 MG TAB ONE (17:49)
[2017-06-28 17:58] LABS: % BASOPHILS 0.5 % (0.0-2.0); % EOSINOPHILS 3.1 % (0.0-5.0); % LYMPHOCYTES 44.3 % (20.0-50.0); % MONOCYTES 9.6 % (2.0-10.0); % NEUTROPHILS 42.5 % (40.0-80.0); EOSINOPHILE ABSOLUTE 0.2 Th/cmm (0.1-0.4); HEMATOCRIT 33.4 % (41.0-60); HEMOGLOBIN 10.8 gm/dL (12-16); LYMPHOCYTE ABSOLUTE 3.5 Th/cmm (1.5-3.0); MEAN CORPUSCULAR HEMOGLOBIN 22.3 pg (27.0-31.0); MEAN CORPUSCULAR HGB CONC 32.4 pg (28.0-36.0); MEAN PLATELET VOLUME 8.3 fl; MONOCYTE ABSOLUTE 0.7 Th/cmm (0.3-1.0); NEUTROPHILE ABSOLUTE 3.2 Th/cmm (1.8-8.0); PLATELET COUNT 412 Th/cmm (150-400); RED BLOOD COUNT 4.85 Mil/cmm (3.80-5.10); RED CELL DISTRIBUTION WIDTH 21.1 % (11.5-20.0); WHITE BLOOD COUNT 7.6 Th/cmm (4.8-10.8)
[2017-06-28 18:15] LABS: ALB/GLOB RATIO 1.3 (1.0-1.8); ALKALINE PHOSPHATASE 102 U/L (34-104); ANION GAP 10.2 (7.0-16.0); BILIRUBIN,TOTAL 0.2 mg/dL (0.3-1.0); BUN - UREA NITROGEN 8 mg/dL (7-25); CALCIUM SERUM 9.1 mg/dL (8.6-10.3); CARBON DIOXIDE 26.2 mEq/L (21.0-31.0); CHLORIDE 102 mEq/L (98-107); CREATININE - SERUM 0.5 mg/dL (0.6-1.2); GFR AFRICAN-AMERICAN > 60.0 ml/min (>90); GFR NON AFRICAN-AMERICAN > 60.0 ml/min; GLUCOSE 99 mg/dL (70-105); POTASSIUM SERUM 3.4 mEq/L (3.5-5.1); SGOT 10 U/L (13-39); SGPT/ALT 10 U/L (7-52); SODIUM SERUM 135 mEq/L (136-145); TOTAL PROTEIN,SERUM 7.1 gm/dL (6.0-8.3)
--- NOTE | 2017-06-28 18:29 | ER Physician Documentation ---
DATE OF SERVICE: 06/28/2017 EMERGENCY ROOM EVALUATION AND TREATMENT She is a mother of 4 children, 2 boys, 2 girls. Two she had. She has a full code. This is a 46-year-old patient who said that she got up this morning, she had some headache; off and on here and there she gets headaches. 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 She has been treated by the [facility] physicians. It was about 20 cm size, it was 5 years ago and now according to her, it is shrinking, she does not know how much it has shrinked. She will be seen somewhere in the middle of September again at [facility]. She got up this morning, she had some conjunctival hemorrhage and she came to the hospital. She has a right eye conjunctival hemorrhage. She has been taking for a few days, ibuprofen 600 mg 1 tablet 4 times a day and I believe that might have caused her this subconjunctival hemorrhage. The patient then came here. Her reflexes, etc. are all normal. HISTORY OF PRESENT ILLNESS: Is otherwise benign and negative. REVIEW OF SYSTEMS: A 12-lead review of system is also benign and negative. EYES: No history of double vision, blurring, blindness. Right eye, subconjunctival hemorrhage is noted. Pupils are equal, reacting to light. Conjunctivae, subconjunctival hemorrhage in the right eye. Left eye is normal. Carotids are normal. NECK: Supple. There is no pain anywhere in the body. The patient has no other discomfort in the body. speaking secretary to the vice president was used to interpret us, interpret her complaints. The patient said that this is the only complaint that she has is the tumor, which is shrinking and she will be seeing her own physician and she has a subconjunctival hemorrhage. She was advised not to take ibuprofen and just use Tylenol as and when needed on a p.r.n. basis. Subconjunctival hemorrhage came in because of a very high dose of ibuprofen that she has taken 600 mg 4 times a day that is 2.4 grams of ibuprofen a day for the past few days, I believe she is taking it. PULMONARY: There is no history of pneumonia, TB, pulmonary embolism, COPD, emphysema, bronchitis. Bones and joints, no apparent complaints. She does not have any tumors. She does not have any metastatic tumors. The tumor in the brain cannot be operated because of the high risk. ENDOCRINE BOSWELL: The patient does not have any diabetes mellitus, hypo or hyperthyroidism. Bones and joints, no apparent complaints. PULMONARY: No history of pneumonia, TB, pulmonary embolism. CENTRAL NERVOUS SYSTEM BOSWELL: The patient has a tumor, but no history of any seizure disorder. CARDIAC BOSWELL: No history of any chest pain. No history of myocardial infarction. No history of rheumatic fever. No valvular disease, no pericardial disease. GI BOSWELL: No history of any diarrhea, constipation, vomiting, GI bleeding. The patient had a done, two C-sections done. The patient has two boys and two girls. PHYSICAL EXAMINATION: GENERAL: The patient appears to be awake, alert, oriented, not in any acute cardiorespiratory distress. Conjunctivae is pink. Sclerae is white. Left eye conjunctivae is okay. The right eye conjunctivae is subconjunctival hemorrhage. VITAL SIGNS: Shows temperature 98.4, pulse is 96, respirations 17, blood pressure 160/76, oxygen saturation 98. Height is 5 feet 1 inches, weight 150. Last menstrual period is approximately 3 weeks ago. The patient is current in her flu shots, etc. She does not smoke. She does not drink. The brain tumor is in the occipital part area according to her, pointing to me the area where the tumor is. The patient never came to this hospital before. ABDOMINAL EXAMINATION: The patient's liver and spleen not enlarged. No free fluid in the abdominal cavity. CENTRAL NERVOUS SYSTEM: Is otherwise within normal limits. No meningeal signs. The patient's bones and joints appear to be normal. Costovertebral angle appears to be normal. GENITOURINARY: Appears to be normal. A 12-system review was essentially negative except for the ones mentioned earlier. She does not have diabetes mellitus. She does not have hyper or hypothyroidism. No evidence of taking any diabetes medicine. She does not have any brain tumors. She does not smoke or drink alcoholic beverages. 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 FAMILY HISTORY: Benign and negative. Other surgeries, is otherwise negative. MEDICATIONS: Medication that she takes is ibuprofen. PHYSICAL EXAMINATION: GENERAL: The patient appears to be awake, alert, oriented. CHEST: Clear. Trachea being central. Fairly good air entry in both lungs. HEART: Reveals normal heart sounds. Soft fourth heart sounds. Second heart sound physiologically split. Third heart sound is absent. ABDOMEN: Soft, benign and negative. CENTRAL NERVOUS SYSTEM: Grossly within normal limits except for the tumor that she described. She is under the treatment from the [facility] physician. GENITOURINARY: Essentially within normal limits. Costovertebral angle area appears to be within normal limits. Clinical, cancer boswell, the patient has a tumor in the brain, most likely it might be cancer, but it is shrinking. I do not know whether the patient got any radiation therapy or not, but the patient is getting some kind of treatment over there. She does not know it. She cannot say it to me too. CLINICAL IMPRESSION: 1. The patient has a brain tumor in the occipital area. 2. The patient is a new onset of subconjunctival hemorrhage, most likely secondary to the use of ibuprofen 600 mg 4 times a day and she was advised to give up this medication. In the past she has been taking Wilson, also, but that has been stopped more than a month ago according to her. The patient's lab workup has been sent and we will see if there is anything in the lab that comes back. If there is anything terrible comes back, then we will not discharge her but otherwise the patient would be discharged for home to be followed up by our own physician. FINAL DIAGNOSES: 1. Brain tumor. 2. Subconjunctival hemorrhage. 3. Two C-sections done in the past. 4. Mildly overweight condition. I have ordered some CBC and BMP and if it normal she will go home. JOB# [id number]
[2017-06-28 18:39] LABS: MEAN CELL VOLUME 68.9 fl (81-100)
--- NOTE | 2017-06-29 15:11 | ER Physician Documentation ---
DATE OF SERVICE: 06/28/2017 She is a full code. HISTORY OF PRESENT ILLNESS: This is a 46-year-old female patient who came to the Emergency Room with right subconjunctival hemorrhage. 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 This was diagnosed about 5 years ago. The patient was treated by [facility] physicians. The patient is under the care of [facility] physician. She will be seeing them in September for this condition. The patient has been taking aspirin. The patient has been taking ibuprofen 600 mg 4 times a day and because of that, the patient developed subconjunctival hemorrhage to the best of my knowledge. The patient does not have any other complaints. She had 4 children, 2 boys, 2 girls, I dictated that before, but I cannot remember, so I am dictating it again. REVIEW OF SYSTEMS: A 12-point review of systems was reviewed and essentially was benign and negative. The patient has some headache. She takes ibuprofen. She was advised to not to take ibuprofen because it will increase the subconjunctival hemorrhage. She can take couple of Tylenol 2 or 3 times a day at the most. The patient's brain tumor is already under the treatment of [facility] physician for past 5 years, so we did not do anything much about that aspect. Cipro eye drops were given to be put it in. A 12-point review of system was reviewed, essentially benign and negative. PHYSICAL EXAMINATION: GENERAL: The patient appears to be awake, alert, oriented, not in any acute cardiorespiratory distress. HEENT: Conjunctivae pink. Sclerae is white. HEENT is normal. All these things were already dictated out and I rechecked it. This is all dictated out, so no need to do redo that. The patient's lab workup was done, which showed white count of 7.6, hemoglobin to be 10.8, hematocrit 33.4, platelet count of 412, neutrophils 42.5, lymphocytes 44.3. Electrolytes showed sodium 135, potassium 3.4, the patient can take some banana at one home. Chloride is 102, BUN is 8, creatinine is 0.5, glucose is 99, calcium is 9.1. Total bilirubin is 0.2, AST is 10, ALT is 10. Total protein 7.1, albumin is 4, and globulin is 3.1. The patient will be going home. The patient will take Cipro eyedrops, Tylenol. FINAL DIAGNOSES: Same as I mentioned earlier, occipital tumor, right eye subconjunctival hemorrhage. The patient will be seeing her doctor and the [facility] physician. Sed rate is found to be 17, so the patient did not have anything acutely going wrong. The patient will be going home and nurses were informed to discharge the patient. JOB# [id number]
== END 2017-06-28 19:53 | disposition home or self-care (01) ==
LOC: ER 16:49
DX: H11.31 Conjunctival hemorrhage, right eye (principal); C71.9 Malignant neoplasm of brain, unspecified; Z98.890 Other specified postprocedural states
CPT/HCPCS: 36415-UA; 80053-TC; 85025-TC; 85652-TC; Z7502; Z7610